=== PATIENT | female | born 1950 | race Caucasian/White ===

== ENCOUNTER → 2017-04-14 | Outpatient (CLI) | payer OTHER ==
[~2017-04-14] VITALS: Ht 154.9 cm; Wt 80.3 kg
[~2017-04-14] MED LIST: ESTRACE0.5 MG PO; NEURONTIN 300300 M1 PO; OXYCODONE HCL10 MG PO; OXYCODONE HCL15 MG PO; OXYMORPHONE HCL10 M1 PO; REMERON15 M2 PO; VISTARIL 25 MG25 M1 PO; ZANAFLEX4 MG PO
--- NOTE | ~2017-04-14 | HPC ---
[facility] [address] [address] PAIN MANAGEMENT CONSULTATION Name: GERARD PARDO Room #: REG [facility] Laney.#: [id number] Admission: 04/14/17 Attend Phys: Tucker Jordan MD Discharge: Date of : 50 Report #: [id number] THIS REPORT FOR: //name// CC: JUDY Ahn DATE OF SERVICE: 04/14/2017 CHIEF COMPLAINT: Back pain. FOLLOWUP HISTORY: The patient is a 66-year-old female who has been referred to the Pain Clinic for evaluation of medications and treatment options. FOLLOWUP HISTORY: The patient is a 66-year-old female who has had a long history of back pain for greater than 10 years. She had surgery in 2003. She has had placement of Henley rods because of chronic back pain. She has been treated with medications. Notes that her pain is worse when she is standing, walking, sitting for a prolonged period of time. Feels that ice and pain medications as well as rest can be helpful. She is having pain in a number of areas. She has pain shooting down in her low back as well as some pain in the neck area. Describes it as constant, shooting, cramping, aching and crushing. She rates it as 3/10 at this juncture. 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 She has been followed at a pain clinic in [place], [place]. Her insurance is changing. She is no longer able to follow up in that pain clinic. She has sought out treatment and pain medication management. She finds that her pain is made worse with bending, changing position, coughing, going up and down stairs and increasing her general activities of daily living. Sneezing can be problematic. Sometimes, she has difficulty sleeping because of the pain symptoms. Prior treatment has included x-rays, CT scans, EMG test, nerve blocks, myelograms, CT myelograms, bone scans, lumbar punctures, EKGs and MRI scans. Some of the professional caregivers the patient has seen have included pain management physicians, family physicians, spine surgeons, neurologist, Orthopedics, anesthesiologist, rehab medicine, neurosurgeons, nurse practitioners and psychiatrist. Treatment in the past have included bed rest, ice, intrathecal infusion pump and psychiatric treatments. ALLERGIES: DYES, LATEX, MORPHINE, VALIUM, PENICILLINS, BARBITURATES. MEDICATIONS: Estrace 0.5 mg daily, tizanidine 4 mg t.i.d., hydroxyzine 25 mg 4 times daily, codeine immediate release 15 mg p.r.n., oxymorphone ER 10 mg b.i.d., gabapentin 300 mg t.i.d. Medications used in the past include antidepressants, nonsteroidal anti-inflammatory medications, Flexeril, hydrocodone, methadone, MS Contin, [address] [address] PAIN MANAGEMENT CONSULTATION Name: GERARD PARDO Room #: REG [facility] Joe#: [id number] Admission: 04/14/17 Attend Phys: Tucker Jordan MD Discharge: Date of : 50 Report #: [id number] Avinza, Caitlin, muscle relaxants, narcotics, Opana, oxycodone, OxyContin, Percocet, Soma and Ultram. PAST MEDICAL HISTORY: Chronic back pain, anemia, tested positive for tuberculosis with serology, liver disease, hepatitis, kidney stones. PAST SURGICAL HISTORY: Carpal tunnel surgery, face surgery, foot surgery, hysterectomy in 1986, back surgery for spondylosis in 1982, back surgery with Henley joy placement in 2003. 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 She has not worked for 13 years. Denies use of tobacco, denies use of alcoholic beverages. REVIEW OF SYSTEMS: Questionnaire 14-point review indicates generally good health, fatigue, weakness, headaches, hearing loss/ringing in the ears, chronic sinus problems, nausea, frequent headaches, lightheadedness, dizziness, numbness and tingling sensation, depression at the of her child, insomnia occasionally, anemia in the past. PAIN CLINIC ASSESSMENT: 1. History of osteoarthritis is yes, history of rheumatoid arthritis is no. 2. Height 5 feet 1 inch, weight 177 pounds, BMI is 35. 3. VITAL SIGNS: Blood pressure 78/51, pulse 94, respiratory rate 14, room air saturation 95%. 4. Pain score 3 today, average is 4-5. 5. Fall risk, dizziness, need for help with standing and with walking is no. Fallen in the last 3 months is yes. The patient complains of falling 4 days ago, just passed out, did not seek medical care. 6. The patient is not on blood thinner. 7. The patient is not being treated for hypertension. 8. Opioids greater than 6 weeks. The patient will continue with her current medication regimen per her doctor and follow up after these medications have been consumed. 9. Risk assessment tool. 10. Recreational drug use none, tobacco none, alcohol use none. PHYSICAL EXAMINATION: GENERAL: The patient is a well-developed white female. She appears stated age. She is alert and oriented x 3. Affect appears appropriate. Speech is fluent. HEENT: Normocephalic, atraumatic. Extraocular eye muscles intact. The patient has some decreased hearing. She has some history of sinusitis, not problematic today. Moist buccal membranes. NECK: Without bruits. No masses noted. CHEST: Clear to auscultation. HEART: Regular rate. ABDOMEN: Without organomegaly. [facility] [address] [place] [address] PAIN MANAGEMENT CONSULTATION Name: GERARD PARDO Room #: REG [facility]#: [id number] Admission: 04/14/17 Attend Phys: Tucker Jordan MD Discharge: Date of : 50 Report #: [id number] UPPER EXTREMITY EVALUATION: Muscle strength is 5/5 in the major muscle groups of the upper extremity. She does complain of some pain in her hands down into the hand with numbness. 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 MUSCULOSKELETAL: The patient has a well-healed scar in the lower portion of her back, some paraspinous muscle soreness below L3, L4, L5 in the paraspinous areas, some discomfort and generalized pain in the thoracic area and in the area of the rods. Complains of pain and discomfort in the lower portion of her back with pain radiating down into her legs along the outside of the cast with numbness and on the lateral side of her feet and involvement of the big toes. Positive straight leg raises. Left and right lateral bending is somewhat limited. Left and right lateral rotation is limited. Forward bending to about 30 degrees caused increased pain in the low back area. Lumbar extension is also limited. The patient has a slightly uneven gait, unable to walk on her heels or her toes. IMPRESSION: 1. Lumbar radiculopathy, history of back surgery with Henley rods in place. 2. Complex medical management. RECOMMENDATIONS: We discussed the treatment options with the patient. We will review her past medical records. She states that she has had no problems with the medications, she has been using them as prescribed. The reason for her change of pain clinic is due to insurance reasons. She states that she gets all of her medications from one source. She has not had problems with the medications. She finds that the medications enable her to engage in activities of daily living, she would not be able to without their use. She keeps her medications in a guarded area. We had a long talk about the current climate of pain control. Opioid medications are in the news forefront. The patient states that over the number of years that she has been taking the medications, she is taking them responsibly. They have been causing no problems. She continues to take them as prescribed and would like to continue their use. She has some medications, which were prescribed by her present doctor. Once these medications have been consumed, she will follow up in the Pain Clinic, at which time we will consider continued evaluation of the patient and treatment for her chronic pain situation. We would like to thank you for letting us to participate in her care. We hope she continues to improve. <ELECTRONICALLY SIGNED> By: Tucker Jordan MD 05/24/17 1424 [id number] [id number] Tucker Jordan MD /nt
[2017-04-14 11:25] VITALS: BP 78/51
== END ==
LOC: PAIN 08:53
DX: M54.16 Radiculopathy, lumbar region (principal); M19.90 Unspecified osteoarthritis, unspecified site; Z98.1 Arthrodesis status

== ENCOUNTER → 2017-05-26 | Outpatient (CLI) | payer OTHER ==
[~2017-05-26] VITALS: Ht 154.9 cm; Wt 80.7 kg
[~2017-05-26] MED LIST changes: +CYMBALTA60 MG PO; +ESZOPICLONE2 MG PO; +LIPITOR 20 MG T20 M1 PO; +SINGULAIR 10 MG10 M1 PO
--- NOTE | ~2017-05-26 | HPC ---
[facility] [address] [address] PAIN MANAGEMENT CONSULTATION Name: GERARD PARDO Room #: REG [facility] Laney.#: [id number] Admission: 05/26/17 Attend Phys: Tucker Jordan MD Discharge: Date of : 50 Report #: [id number] THIS REPORT FOR: //name// CC: JUDY Ahn DATE OF SERVICE: 05/26/2017 CHIEF COMPLAINT: Here for medication renewal. FOLLOWUP HISTORY OF PRESENT ILLNESS: The patient is a 66-year-old female who has been followed in the pain clinic because of lumbar radicular pain and osteoarthritis with rheumatoid arthritis. She has returned for renewal of her medications. She continues to have pain in her neck, which is shooting down into her sacral area bilaterally. She has some numbness in the outside of her calves as well. Has pain, which is throbbing in her back and thoracic area. Rates her pain as a 5/10. Pain is worse when she is standing, walking as well as if she sits for too longer period of time. Pain improves with use of rest, ice, and feels that her current pain medications are helpful. She has had surgery. Last surgery in 2003. She has had placement of Henley rods in her low back because of the chronic pain. 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 She has been treated with a number of modalities in the past, but her pain continues to be problematic. She feels that her current medical regimen of oxymorphone and tizanidine were helpful. She would like to have these medications renewed. She states that she has taken her medication as prescribed. Keeps her medications in a guarded area. ALLERGIES: DYES, LATEX, MORPHINE, VALIUM, PENICILLINS, BARBITURATES. CURRENT MEDICATIONS: Estrace 0.5 mg daily, tizanidine 4 mg p.o. t.i.d., hydroxyzine 25 mg 4 times daily, codeine immediate release 15 mg p.r.n., oxymorphone ER 10 mg b.i.d., and gabapentin 300 mg t.i.d. PAIN CLINIC ASSESSMENT 1. The patient has a history of osteoarthritis, history of rheumatoid arthritis. Has had surgery in the low back area with rods placed in her low back/Henley. 2. Height 5 feet 1 inch, weight 177 pounds, BMI is 33.6. 3. Vital Signs: Blood pressure 113/75, pulse 93, respiratory rate 16, room air saturation is 97%. 4. Pain intensity is 5/10. 5. Fall risk. The patient has not fallen. The patient complains of some problems about 4 days ago. She did not fall. She did not seek medical attention. 6. The patient is [place] [address] PAIN MANAGEMENT CONSULTATION Name: GERARD PARDO Room #: REG [facility]#: [id number] Admission: 05/26/17 Attend Phys: Tucker Jordan MD Discharge: Date of : 50 Report #: [id number] 7. History of hypertension. The patient is not treated for hypertension. 8. Opioid therapy, greater than 6 weeks the patient does not have a contract. 9. Opioid risk tool. 10. Functional assessment tool. 11. Recreational drug use. The patient denies use of recreational drugs. 12. Tobacco: The patient has never smoked. 13. Alcohol. The patient denies frequent use of alcoholic beverages. PHYSICAL EXAMINATION: GENERAL: The patient is a well-developed, well-nourished female. She appears her stated age. She is alert and oriented x 3. Affect is appropriate Speech is fluent. HEENT: Normocephalic, atraumatic. Extraocular eye muscles intact. The patient has some decreased hearing. She has a history of sinusitis and moist mucous membranes. NECK: Without bruits, no masses. CHEST: Clear to auscultation. HEART: Regular rate. ABDOMEN: Without organomegaly. MUSCULOSKELETAL: Complained of soreness in upper extremities. Muscle strength remains 5/5 for the major muscle groups in the upper extremities. Complains of some pain and discomfort in her hands with some numbness. 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 Lower extremities: The patient has some soreness in the area of the L3, L4, L5, paraspinous muscle groups. Muscle strength is judged to be 5/5 for the major muscle groups in the lower extremities. Does have some feeling of pain that is radiating down into the legs. Some discomfort in the area of the cast. Some discomfort in the outside of her feet with numbness. Some ____ inside of her big toes. IMPRESSION: 1. Lumbar radicular pain. History of back surgery with Henley rods in place. 2. Complex medical management with opioid medications. 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 Risks and benefits again of opioid therapy were discussed. Possible complications of their use, which include addiction as well as tolerance have been discussed. The patient feels that her medications are helpful. She would like to continue them. She keeps them in a guarded area. She denies any bowel or bladder dysfunction. She is thinking clearly with no mental fogging. We will provide her with an additional script for tizanidine, oxycodone, and oxymorphone. She will call us if she has any problems with her medications. [facility] [address] [place] [address] PAIN MANAGEMENT CONSULTATION Name: CUTBIRTHGERARD L Room #: [facility].#: [id number] Admission: 05/26/17 Attend Phys: Tucker Jordan MD Discharge: Date of : 50 Report #: [id number] We would like to thank you for letting us participate in her care. We hope she continues to improve. <ELECTRONICALLY SIGNED> By: Tucker Jordan MD 06/14/17 0816 1536 [id number] Tucker Jordan MD /nt
[2017-05-26 11:24] VITALS: BP 113/75
== END ==
LOC: PAIN 05-08 13:41
DX: M54.5 Low back pain (principal); M54.16 Radiculopathy, lumbar region; M06.9 Rheumatoid arthritis, unspecified; I10 Essential (primary) hypertension; F11.90 Opioid use, unspecified, uncomplicated; Z79.899 Other long term (current) drug therapy

== ENCOUNTER → 2017-06-30 | Outpatient (CLI) | payer OTHER ==
[~2017-06-30] VITALS: Ht 154.9 cm; Wt 79.0 kg
[~2017-06-30] MED LIST changes: -CYMBALTA60 MG PO; -ESZOPICLONE2 MG PO; -LIPITOR 20 MG T20 M1 PO; -SINGULAIR 10 MG10 M1 PO
--- NOTE | ~2017-06-30 | HPC ---
[facility] [address] [address] [place] [address] PAIN MANAGEMENT CONSULTATION Name: GERARD PARDO Room #: REG [facility]..#: [id number] Admission: 06/30/17 Attend Phys: Tucker Jordan MD Discharge: Date of : 50 Report #: [id number] THIS REPORT FOR: //name// CC: JUDY Ahn DATE OF SERVICE: 06/30/2017 FOLLOWUP COMPLAINT: Medications working well. Deny of having any problems. "Still having some pain that is down in my upper back, low back and down in the cast." FOLLOWUP HISTORY: The patient is a 66-year-old female, who has been followed in the pain clinic because of chronic pain. She suffers from lumbar radicular pain as well as osteoarthritis and rheumatoid arthritis. She has returned today for renewal of her medication. Finds her medications continue to be helpful. They enable her to stay active. She rates her pain as a 5/10 today. Continues to describe this constant, shooting, cramping, aching, crushing and stabbing with some sharp dimensions to the pain. Pain is exacerbated by standing, walking as well as for sitting too long. Notes improvement with use of rest and pain medications. Finds her medications continue to be helpful. Denies any problems with her medications. She feels like her sensorium is clear. She would like to continue with her current medication. ALLERGIES: DYES, LATEX, MORPHINE, VALIUM, PENICILLINS, BARBITURATES. MEDICATIONS: Esterase 0.5 mg daily, tizanidine 4 mg p.o. t.i.d., hydroxyzine 25 mg 4 times daily, codeine immediate release 15 mg p.r.n., oxymorphone ER 10 mg 1 p.o. b.i.d. and gabapentin 300 mg t.i.d. PAIN CLINIC ASSESSMENT: 1. The patient does have a history of osteoarthritis and history of rheumatoid arthritis. She has had surgery in her low back and has rods placed in this area with pedicle screws/Henley rods. 2. Height 5 feet 1 inch, weight 174 pounds, BMI is 32. 3. VITAL SIGNS: Blood pressure 137/94, pulse of 117, respiratory rate 20, room air saturation 97%. 4. Pain intensity 10. 5. Fall risk. The patient has not fallen in the last month. She feels that things are going reasonably well. 6. Blood thinner. The patient is not on a blood thinner. 7. Hypertension. The patient is not being treated for hypertension. 8. Opioid therapy. The patient has a contract with the pain clinic and has to receive her opioid medications from only one service. 9. Opioid risk tool. [address] [address] PAIN MANAGEMENT CONSULTATION Name: GERARD PRADO [facility] [id number] Admission: 06/30/17 Attend Phys: Tucker Jordan MD Discharge: Date of : 50 Report #: [id number] 10. Functional assessment tool. 11. Recreational drugs. Denies ever using recreational drugs. 12. Tobacco: The patient has never smoked cigarettes. 13. Alcoholic beverages. The patient does not drink alcoholic beverages. PHYSICAL EXAMINATION: GENERAL: The patient is well developed white female. She appears her stated age. She is alert and oriented x 3. Affect is appropriate. Speech is fluent. HEENT: Normocephalic, atraumatic. Extraocular eye muscles intact. Sclerae is nonicteric. Hearing is within normal limits. Mucous membranes are moist. NECK: Without bruits or masses. Good range of motion. CHEST: Clear to auscultation without rhonchi or rales. HEART: Regular rate. ABDOMEN: Nontender, without organomegaly. MUSCULOSKELETAL: The patient has some soreness in the upper extremities of her back, some in the mid portion of her back as well as in the lower portion of her back. Muscle strength to the lower extremities judged to be 5/5 for the major muscle groups. She does have some soreness in the L3-L4, L4-L5 paraspinous muscle groups. She does note some pain radiating down into her legs. Upper muscle strength is judged to be 5/5 for the major muscle groups with muscle symmetry. No sensory changes or complaints. The patient does have a slight bit of tremor in her hands bilaterally. IMPRESSION: 1. Lumbar radiculopathy, history of back surgery with Henley joy placements. 2. Complex medical management of pain with opioid therapy. 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 We will continue with her current medical regimen. She denies any problems with her medications. She feels that her sensorium is clear. She keeps her medication in a guarded area. She feels that these medications were helpful and enable her to be engaged in activities of daily living, she would not be able to without their use. States that she takes her medications as prescribed. She would like to have her medications continued. We will renew the patient's current medications. A script for oxymorphone ER 10 mg 1 p.o. every 12 hours p.r.n., tizanidine 4 mg 1 p.o. t.i.d. and oxycodone 10 mg 1 p.o. t.i.d. have been written. The patient will call us if she has any problems with her medications. We would like to thank you for letting us participate in her care. We hope she continues to improve. <ELECTRONICALLY SIGNED> By: Tucker Jordan MD 07/04/17 0823 1308 [id number] Tucker Jordan MD /nt
[2017-06-30 10:53] VITALS: BP 137/94
== END ==
LOC: PAIN 07:16
DX: M54.16 Radiculopathy, lumbar region (principal); F11.90 Opioid use, unspecified, uncomplicated; Z98.890 Other specified postprocedural states; Z91.040 Latex allergy status; Z91.041 Radiographic dye allergy status; Z88.5 Allergy status to narcotic agent; Z88.8 Allergy status to other drugs, medicaments and biological substances; Z88.0 Allergy status to penicillin

== ENCOUNTER → 2017-08-25 | Outpatient (CLI) | payer OTHER ==
[~2017-08-25] VITALS: Ht 154.9 cm; Wt 85.2 kg
[~2017-08-25] MED LIST changes: +CYMBALTA60 MG PO; +ESZOPICLONE2 MG PO; +LIPITOR 20 MG T20 M1 PO; +SINGULAIR 10 MG10 M1 PO
--- NOTE | ~2017-08-25 | HPC ---
[facility] [address] [address] [place] [address] PAIN MANAGEMENT CONSULTATION Name: GERARD PARDO Room #: REG [facility] M..#: [id number] Admission: 08/25/17 Attend Phys: Tucker Jordan MD Discharge: Date of : 50 Report #: [id number] THIS REPORT FOR: //name// CC: JUDY Ahn Physician staff DATE OF SERVICE: 08/25/2017 FOLLOWUP COMPLAINT: "Medications working well. I do not have any problems." FOLLOWUP HISTORY: The patient is a 66-year-old female who has been seen in the pain clinic because of chronic pain. As you recall, she has pain and discomfort in the lower portion of her back. She suffers from osteoarthritis and rheumatoid arthritis. She feels that her current medications are helpful. She does not have any problems with them. She is taking the medications as prescribed. Continues to have some shooting, cramping, aching, stabbing pain and discomfort. Notes some worsening of pain if she sits for a prolonged amount of time. Continues to stretch. Keeps her medications in a guarded area. She is aware of the possible complications associated with opioid medications. She has been watching the news on the media. She is aware that some patients have had problems with addiction as well as decreased effectiveness because of tolerance. ALLERGIES: DYES, LATEX, MORPHINE, VALIUM, PENICILLIN, BARBITURATES. CURRENT MEDICATIONS: Esterase 0.5 mg daily, tizanidine 4 mg p.o. t.i.d., hydroxyzine 25 mg q.i.d., codeine immediate release 15 mg p.r.n., oxymorphone ER 10 mg 1 p.o. b.i.d., gabapentin 300 mg p.o. t.i.d. PAIN CLINIC ASSESSMENT: 1. The patient has a history of osteoarthritis and rheumatoid arthritis. She has had surgery on her low back with placement of rods and pedicle screws. Henley rods were instituted. 2. Height 5 feet 1 inch, weight 187 pounds, BMI is 35.5. Blood pressure 125/76, pulse 122, respiratory rate 16, room air saturation 98%. 3. Pain intensity 05/20. 4. Fall risk. The patient has not fallen in the last 3 months. 5. Blood thinner. The patient is not on a blood thinning medication. 6. Hypertension. The patient has not been treated for hypertension. 7. Opioid therapy greater than 6 weeks. 8. Risk assessment tool, low. 9. Functional assessment tool 60/70 showing significant impact on her life and activities as a result of the pain. 10. Tobacco: The patient has never smoked. [facility] [address] [place] [address] PAIN MANAGEMENT CONSULTATION Name: GERARD PARDO Room #: REG [facility]#: [id number] Admission: 08/25/17 Attend Phys: Tucker Jordan MD Discharge: Date of : 50 Report #: [id number] 11. Alcohol: The patient denies frequent use of alcoholic beverages. PHYSICAL EXAMINATION: GENERAL: The patient is a well-developed white female, appears her stated age. She is alert and oriented x 3. Her affect is appropriate. Speech is fluent. HEENT: Normocephalic, atraumatic. Extraocular eye muscles intact. Sclerae nonicteric. Hearing is within normal limits. Mucous membranes are moist. NECK: Without adenopathy, bruits with good range of motion. CHEST: Clear to auscultation without rhonchi or rales. HEART: Regular rate. S1, S2. ABDOMEN: Nontender, without organomegaly. MUSCULOSKELETAL: The patient continues to have some soreness in the upper extremities. Has pain and discomfort in the lower portion of her back. Muscle strength is judged to be 5/5 in major muscle groups in the upper extremity. Muscle strength in the lower portion 5/5 with some limitations in movement as well as a well-healed scar in the lower portion of her back. The patient has slight tremor in her hands bilaterally. IMPRESSION: 1. Lumbar radiculopathy with history of Henley joy placement and fusion, lumbar area. 2. Complex medical management using opioid medications. 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 She feels that her medications are working reasonably well. She has had no complications with their use. She is sleeping well. Her mentation is good. Feels that the medications are doing just what they should do. They are providing her with pain relief, but not significantly impacted on activities of daily living. She would like to continue with her medications. She will call us if she has any problems with her medications. We would like to thank you for letting us participate in her care. We hope she continues to improve. By: 1418 1830 Tucker Jordan MD /[facility]
[2017-08-25 11:09] VITALS: BP 125/76
== END ==
LOC: PAIN 06:48
DX: M54.16 Radiculopathy, lumbar region (principal); Z79.891 Long term (current) use of opiate analgesic

== ENCOUNTER → 2017-09-29 | Outpatient (CLI) | payer OTHER ==
[~2017-09-29] VITALS: Ht 157.5 cm; Wt 87.5 kg
[~2017-09-29] MED LIST changes: +VENTOLIN HFA 1818 GM INH
--- NOTE | ~2017-09-29 | HPC ---
[facility] [address] [place] [address] PAIN MANAGEMENT CONSULTATION Name: GERARD PARDO Room #: REG [facility] M..#: [id number] Admission: 09/29/17 Attend Phys: Tucker Jordan MD Discharge: Date of : 50 Report #: [id number] THIS REPORT FOR: //name// CC: JUDY Ahn Physician staff DATE OF SERVICE: 09/29/2017 FOLLOWUP COMPLAINT: Here for medication renewal. FOLLOWUP HISTORY: The patient is a 66-year-old female who has been followed in the Pain Clinic because of chronic pain. She has pain and discomfort in the lower portion of her back. She describes an area in the mid back, which she describes as painful. It is about the size of an orange. She does complain of problems with rheumatoid arthritis as well as osteoarthritis. She feels that the opioid medications are helpful, they enable her to engage in activities she would not be able to without their use. Still has some shooting, cramping, stabbing pain. States that she continues to stretch and be active. She keeps her medications in a guarded area. She is aware of the possible complications with opioids. She continues to monitor opioid discussion in the media. She feels that her medications are helpful. She is aware of the possibility of addiction and notes that its effectiveness may decrease over a period of time secondary to tolerance. She would like to have her medications renewed. She does not have any problems with the medications. ALLERGIES: DYE, LATEX, MORPHINE, VALIUM, PENICILLIN, BARBITURATES. CURRENT MEDICATIONS: Esterase 0.5 mg, tizanidine 4 mg t.i.d., hydroxyzine 25 mg q.i.d., codeine immediate release 15 mg, oxymorphone ER 10 mg 1 p.o. b.i.d., gabapentin 300 mg t.i.d. PAIN CLINIC ASSESSMENT: 1. The patient has a history of osteoarthritis and rheumatoid arthritis. She has had surgery on her low back with placement of rods and pedicle screws. She has Henley rods in place. 2. Height 5 feet 1 inch, weight 193 pounds, BMI is 35. 3. Vital signs: Blood pressure is 143/87, heart rate is 100, respiratory rate 14, room air saturation 94%. 4. Pain intensity: 10. 5. Fall risk: The patient has not fallen in the last 3 months. 6. Blood thinner: The patient is not on a blood thinning medication. 7. History of hypertension: The patient is not being treated for hypertension. 8. Opioid therapy greater than 6 weeks: The patient is on a contract and receives her [place] [address] PAIN MANAGEMENT CONSULTATION Name: GERARD PARDO Room #: REG [facility] Tatyana#: [id number] Admission: 09/29/17 Attend Phys: Tucker Jordan MD Discharge: Date of : 50 Report #: [id number] 9. Risk assessment: 20 to low. 10. Functional assessment tool: 60/70. 11. Recreational drug use: The patient denies use of recreational drugs. 12. Tobacco: The patient has never smoked. 13. Alcohol: The patient denies frequent use of alcoholic beverages. PHYSICAL EXAMINATION: GENERAL: The patient is a well-developed, well-nourished, white female. Appears her stated age. She is alert and oriented x 3. Her affect is appropriate. Speech is fluent. HEENT: Normocephalic, atraumatic. Extraocular eye muscles intact. Sclerae nonicteric. Hearing within normal limits. Mucous membranes are moist. NECK: Without adenopathy or bruits and good range of motion. CHEST: Clear to auscultation without rhonchi or rales. HEART: Regular rate, S1 and S2. ABDOMEN: Nontender without organomegaly. MUSCULOSKELETAL: The patient continues to have some soreness in her upper extremities. Has pain and discomfort in the lower portion of her back about the size of an orange in the midline area in the L5-S1 areas. The patient's muscle strength in the upper extremity is judged to be 5/5, muscle strength in the lower extremity 5/5 as well. The patient has slight tremors in her hands bilaterally. IMPRESSION: 1. Lumbar radiculopathy with history of Henley joy placement and fusion in the lumbar area. 2. Complex medical regimen using opioid medications. 3. History of tuberculosis. 4. Anemia. 5. History of kidney stones. 6. History of hepatitis. 7. Liver disease. 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 Risks and benefits of current use of opioid medications were again reviewed with the patient. 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 She is aware of the complications of opioid use. She feels that the medications are helpful in enabling her to engage in activities of daily living, she would like to continue with it. A script for her medications have been written. The patient was provided a drug test. We will rewrite her prescription for OxyIR 10 mg t.i.d., oxymorphone ER q. 12 hours as well as tizanidine [address] [address] PAIN MANAGEMENT CONSULTATION Name: CUTGERARD NAVARRETE Room #: REG [facility]#: [id number] Admission: 09/29/17 Attend Phys: Tucker Jordan MD Discharge: Date of : 50 Report #: [id number] We would like to thank you for letting us participate in her care. We hope she continues to improve. By: 1630 0600 Tucker Jordan MD /nt
[2017-09-29 10:48] VITALS: BP 143/87
== END ==
LOC: PAIN 06:50
DX: M54.16 Radiculopathy, lumbar region (principal); K76.9 Liver disease, unspecified; D64.9 Anemia, unspecified; Z79.891 Long term (current) use of opiate analgesic

== ENCOUNTER → 2017-10-25 | Outpatient (CLI) | payer OTHER ==
[~2017-10-25] VITALS: Ht 154.9 cm; Wt 83.9 kg
[~2017-10-25] MED LIST changes: +PAROXETINE HCL30 MG PO
[2017-10-25 10:44] VITALS: BP 123/75
== END ==
LOC: PAIN 07:01
DX: M54.2 Cervicalgia (principal); M53.3 Sacrococcygeal disorders, not elsewhere classified; Z79.899 Other long term (current) drug therapy

== ENCOUNTER → 2017-12-22 | Outpatient (CLI) | payer OTHER ==
[~2017-12-22] VITALS: Ht 154.9 cm; Wt 80.5 kg
[~2017-12-22] MED LIST changes: +ESZOPICLONE3 MG PO; +PAROXETINE HCL40 MG PO; +TRAZODONE HCL50 MG PO
--- NOTE | ~2017-12-22 | HPC ---
[facility] [address] [place] [address] PAIN MANAGEMENT CONSULTATION Name: GERARD PARDO Room #: REG [facility].#: [id number] Admission: 12/22/17 Attend Phys: Tucker Jordan MD Discharge: Date of : 50 Report #: [id number] THIS REPORT FOR: //name// CC: JUDY Jordan Physician staff DATE OF SERVICE: 12/22/2017 FOLLOWUP COMPLAINT: Here for medications. Things are going pretty well. HISTORY: The patient is a 67-year-old female who has been followed in the pain clinic. She suffers from chronic pain. As you recall, she has had back surgeries on 2 occasions. Continues to have some pain and discomfort. Has rods and instrumentation in the lower back. Her pain continues to be somewhat problematic. Finds that it is helped with use of her current medications. Rates her pain as a 2/10. Does not have any problems with her bowel or bladder function. She is not having any problems with mentation. Feels that these medications have been beneficial. The patient has not developed tolerance. Feels that the medication at this level continue to be efficacious. She keeps her medications in a guarded area. She would like to have the medications renewed. ALLERGIES: DYES. LATEX, MORPHINE, VALIUM, PENICILLIN AND BARBITURATES. MEDICATIONS: Esterase 0.25 mg, tizanidine 4 mg t.i.d., hydroxyzine 25 mg q.i.d., oxycodone immediate release 15 mg, oxymorphone ER 10 mg 1 p.o. b.i.d., gabapentin 300 mg p.o. t.i.d. PAIN CLINIC ASSESSMENT/PQRS: 1. History of osteoarthritis. The patient has some arthritic changes in her upper back. She has not being treated for rheumatoid arthritis. 2. Height 5 feet 1 inch, weight 177 pounds, BMI is 33.5. 3. Vital signs: Blood pressure 132/80, pulse 92, respiratory rate 16, room air saturation 98%. 4. Pain intensity 04/22. 5. Fall risk. The patient has not fallen in the last 3 months. 6. Blood thinner. The patient is not on a blood thinning medication. 7. Hypertension. The patient has not been treated for hypertension. 8. Opioid therapy. The patient gets her medication from one source, the pain clinic. 9. Risk assessment tool 0, low for use of opioids. 10. Functional assessment tool 60/70. 11. Recreational drug use: The patient denies. 12. Tobacco: The patient denies ever using tobacco. 13. Alcohol: The patient denies use of alcoholic beverages. [address] [address] PAIN MANAGEMENT CONSULTATION Name: GERARD PARDO Room #: REG [facility]#: [id number] Admission: 12/22/17 Attend Phys: Tucker Jordan MD Discharge: Date of : 50 Report #: [id number] PHYSICAL EXAMINATION: GENERAL: The patient is a well-developed, well-nourished white female. Appears her stated age. She is alert and oriented x 3. Her affect is appropriate. Speech is fluent. HEENT: Normocephalic, atraumatic. Extraocular eye muscles intact. Sclerae nonicteric. Mucous membranes are moist. NECK: Without adenopathy or JVD. CHEST: Clear to auscultation without rhonchi or rales. HEART: Regular rate. S1, S2. ABDOMEN: Nontender, without organomegaly. MUSCULOSKELETAL: Without significant kyphosis, lordosis, or scoliosis. The patient has some soreness in her upper extremities. Also, complains of some pain in her lower portion of her back and discomfort in the L5-S1 area. The patient's muscle strength judged to be 5/5 in the major muscle groups in the upper extremity. No sensory changes are noted. Lower extremity muscle strength 5/5. The patient has some slight tremor in her hands bilaterally. IMPRESSION: 1. Lumbar radiculopathy with history of Henley rods and fusion of lumbar spine. 2. Complex medical regimen treated with use of opioid medication. 3. History of tuberculosis. 4. Anemia. 5. History of renal stones. 6. History of hepatitis. 7. History of liver disease. 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 Risks and benefits of opioid medications were again reviewed. The patient is aware that opioid medications can be problematic. A 72,000 people last year as a result of overdoses. The patient is aware. She states she keeps her medications in a guarded area. Feels that the medications are beneficial and enable her to engage in activities of daily living, she would not be able to without their use. She not having any problems or side effects. Thinking clearly. Keeps her medications in a guarded area. We will renew her medications. A script for OxyIR 10 mg 1 p.o. t.i.d., tizanidine 4 mg t.i.d., oxymorphone 10 ER have been renewed. The patient will call us if she has any problems. We would like to thank you for letting us participate in her care. We hope she continues to improve. <ELECTRONICALLY SIGNED> By: Tucker Jordan MD 12/25/17 1125 [id number] 0225 Tucker Jordan MD /rosa
[2017-12-22 13:22] VITALS: BP 132/80
== END ==
LOC: PAIN 07:07
DX: M54.16 Radiculopathy, lumbar region (principal); M43.26 Fusion of spine, lumbar region; D64.9 Anemia, unspecified; G89.29 Other chronic pain; Z79.899 Other long term (current) drug therapy; Z79.891 Long term (current) use of opiate analgesic; Z86.19 Personal history of other infectious and parasitic diseases; Z87.442 Personal history of urinary calculi; Z86.11 Personal history of tuberculosis

== ENCOUNTER → 2018-01-24 | Outpatient (CLI) | payer OTHER ==
[~2018-01-24] VITALS: Ht 154.9 cm; Wt 82.1 kg
[2018-01-24 10:48] VITALS: BP 107/69
== END ==
LOC: PAIN 07:23
DX: M54.2 Cervicalgia (principal); M54.5 Low back pain; M25.551 Pain in right hip; M53.3 Sacrococcygeal disorders, not elsewhere classified; Z79.899 Other long term (current) drug therapy; Z79.891 Long term (current) use of opiate analgesic

== ENCOUNTER → 2018-02-21 | Outpatient (CLI) | payer OTHER ==
[~2018-02-21] VITALS: Ht 154.9 cm; Wt 80.6 kg
[2018-02-21 12:51] VITALS: BP 133/91
== END ==
LOC: PAIN 11:10
DX: M54.2 Cervicalgia (principal); M54.89 Other dorsalgia; M25.551 Pain in right hip; Z79.899 Other long term (current) drug therapy

== ENCOUNTER → 2018-03-21 | Outpatient (CLI) | payer OTHER ==
[~2018-03-21] VITALS: Ht 154.9 cm; Wt 77.3 kg
--- NOTE | ~2018-03-21 | HPC ---
[facility] [address] [address] PAIN MANAGEMENT CONSULTATION Name: GERARD PARDO Room #: REG [facility].#: [id number] Admission: 03/21/18 Attend Phys: Tucker Jordan MD Discharge: Date of : 50 Report #: [id number] THIS REPORT FOR: //name// CC: JUDY Dupont. Pako Jordan DATE OF SERVICE: 03/21/2018 PRIMARY CARE PHYSICIAN: Judy Min DO CHIEF COMPLAINT: Here for medication renewal, things are going reasonably well. 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 She has had surgery on two occasions, the low back area. Finds that her pain continues to be problematic. She does have rods and instrumentation in the low back area. Feels that her current use of oxycodone as well as muscle relaxants like tizanidine have been helpful. She would like to have her medications renewed today. She is not having any problems. Overall, things have gone relatively well. Notes that her pain is worse when she is standing, walking, sitting for too long. Feels that her medications as well as lying down and use of cold in the area can be beneficial. She is taking her medications as prescribed. ALLERGIES: DYES, LATEX, MORPHINE, VALIUM, PENICILLIN, BARBITURATES. CURRENT MEDICATIONS: Estrace 0.25 mg, tizanidine 4 mg t.i.d., hydroxyzine 25 mg q.i.d., oxycodone immediate release 15 mg, omeprazole ER 10 mg b.i.d., gabapentin 300 mg t.i.d. PAIN CLINIC ASSESSMENT/PQRS: 1. History of osteoarthritis. The patient is being treated for osteoarthritis. Has some arthritic changes in her low back area. 2. History of rheumatoid arthritis. The patient is not being treated for rheumatoid arthritis. 3. Height 5 feet 1 inch, weight 170 pounds, BMI is 32.2. 4. Vital signs: Blood pressure 111/73, pulse 80, respiratory rate 14, room air saturation 96%. 5. Pain intensity 06/20. 6. Fall risk. The patient has not fallen in the last 3 months. 7. Blood thinner. The patient is not on a blood thinning medication. 8. History of hypertension. The patient is not being treated for hypertension. 9. Opioids greater than 6 weeks. The patient receives her medication from one source, the pain clinic. 10. Risk assessment tool 0/low for opioid use. 11. Functional assessment tool 60/70. [address] [address] PAIN MANAGEMENT CONSULTATION Name: GERARD PARDO Room #: REG [facility]#: [id number] Admission: 03/21/18 Attend Phys: Tucker Jordan MD Discharge: Date of : 50 Report #: [id number] 12. Recreational drug use. The patient denies use of recreational drugs. 13. Tobacco: The patient has never smoked. 14. Alcohol: The patient denies use of alcoholic beverages. PHYSICAL EXAMINATION: GENERAL: The patient is a well-developed, well-nourished white female. Appears her stated age. She is alert and oriented x 3. Her affect is appropriate. Speech is fluent. HEENT: Normocephalic, atraumatic. Extraocular eye muscles intact. Sclerae nonicteric. Mucous membranes are moist. NECK: Without adenopathy or JVD. LUNGS: Clear to auscultation without rhonchi or rales. ABDOMEN: Nontender, without organomegaly. Bowel sounds present. MUSCULOSKELETAL: Without significant scoliosis, kyphosis or lordosis. Upper extremity muscle strength is judged to be 5-/5. The patient has pain and discomfort in the low portion of her back with pain that radiates down the L5-S1 dermatomal distribution. Has slight tremors in her hands bilaterally. Complains of some low back pain in the sacral area and notes that there is some stiffness in her back. IMPRESSION: 1. Lumbar radiculopathy with history of Henley rods and fusion of the lumbar spine. 2. Complex medical regimen treated with opioid medication. 3. History of tuberculosis. 4. Anemia. 5. History of renal stones. 6. History of hepatitis. 7. History of liver disease. 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 Risks and benefits of her current medications were discussed. The patient feels that the medications are helpful. Not having any problems with them at this juncture. She is aware that opioid medications can be problematic. She is aware that use of opioid medications long-term can be less effective secondary to development of tolerance. She would like to have her medications renewed. A script for her medications of OxyIR 10 mg 1 p.o. t.i.d. as well as oxymorphone 10 mg 1 p.o. q.12 hours have been written. The patient will also continue with tizanidine 4 mg t.i.d. [address] [address] PAIN MANAGEMENT CONSULTATION Name: GERARD PARDO Room #: REG [facility]#: [id number] Admission: 03/21/18 Attend Phys: Tucker Jordan MD Discharge: Date of : 50 Report #: [id number] We would like to thank you for letting us participate in her care. Hope she continues to improve. By: 1750 0057 Tucker Jordan MD /MELINDA
[2018-03-21 10:50] VITALS: BP 111/73
--- NOTE | 2018-03-21 10:57 | NUR ---
Pain Clinic Assessment: 1. History of Osteoarthritis: YES History of Rheumatoid Arthritis: NONE 2. Height: 5 ft. 1 in. 154.9 cm. Weight: 170.4 lb. oz. 77.293 kg. Patient's BMI: 32.2 3. Vital Signs: BP: 111/73 Pulse: 80 Resp: 14 Temp: 02 Sat: 96 ECG Mon: 4. Pain Intensity: 4 5. Fall Risk: Dizziness: N Needs help standing or walking: N Fallen in the last 3 months: N Fall risk comments: 6. Patient on Blood Thinner: None 7. History of Hypertension: N 8. Opioid Therapy greater than 6 weeks: Y Opiate Contract Signed: 04/14/17 9. Risk Assessment Tool Provided: ISAIAS 10. Functional Assessment Tool: 11. Recreational Drug Use: Never Drug Type: Tobacco Use: Never Smoker Tobacco Type: Amount or Packs/day: How Many Years: Alcohol Use: No Frequency: Quant:
== END ==
LOC: PAIN 07:02
DX: M54.16 Radiculopathy, lumbar region (principal); M43.26 Fusion of spine, lumbar region; D64.9 Anemia, unspecified; Z79.899 Other long term (current) drug therapy; Z86.19 Personal history of other infectious and parasitic diseases; Z87.442 Personal history of urinary calculi; Z87.19 Personal history of other diseases of the digestive system; Z86.11 Personal history of tuberculosis

== ENCOUNTER → 2018-04-20 | Outpatient (CLI) | payer OTHER ==
[~2018-04-20] VITALS: Ht 154.9 cm; Wt 76.6 kg
[2018-04-20 10:46] VITALS: BP 135/72
--- NOTE | 2018-04-20 10:50 | NUR ---
Pain Clinic Assessment: 1. History of Osteoarthritis: YES History of Rheumatoid Arthritis: NONE 2. Height: 5 ft. 1 in. 154.9 cm. Weight: 168.8 lb. oz. 76.567 kg. Patient's BMI: 31.9 3. Vital Signs: BP: 135/72 Pulse: 104 Resp: 18 Temp: 02 Sat: 94 ECG Mon: 4. Pain Intensity: 4 5. Fall Risk: Dizziness: N Needs help standing or walking: N Fallen in the last 3 months: N Fall risk comments: 6. Patient on Blood Thinner: None 7. History of Hypertension: N 8. Opioid Therapy greater than 6 weeks: Y Opiate Contract Signed: 04/14/17 9. Risk Assessment Tool Provided: ISAIAS 10. Functional Assessment Tool: 11. Recreational Drug Use: Never Drug Type: Tobacco Use: Never Smoker Tobacco Type: Amount or Packs/day: How Many Years: Alcohol Use: No Frequency: Quant:
--- NOTE | 2018-04-20 16:49 | HPC ---
[facility] [address] [place] [address] PAIN MANAGEMENT CONSULTATION Name: GERARD PARDO Room #: REG [facility].#: [id number] Admission: 04/20/18 Attend Phys: Tucker Jordan MD Discharge: Date of : 50 Report #: [id number] THIS REPORT FOR: //name// CC: JUDY Dupont. Pako Jordan DATE OF SERVICE: 04/20/2018 CHIEF COMPLAINT: Here for medication renewal, things are going well. 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 She has had surgery on 2 occasions in her low back. Finds that these pains continue to be problematic, they are improved with use of her current opioid medication. Has had rods and instrumentation placed in her lower back because of the problems. She feels that oxycodone and tizanidine are helpful. She does not have any problems with her bowel or bladder function. Notes that the pain can be worse if she has too much activity. Walking, standing, prolonged sitting can exacerbate her discomfort. ALLERGIES: DYES, LATEX, MORPHINE, VALIUM, PENICILLIN, BARBITURATES. CURRENT MEDICATIONS: Estrace 0.25 mg, tizanidine 4 mg t.i.d., hydrochlorothiazide 25 mg, oxycodone immediate release 15 mg, omeprazole ER 15 mg b.i.d., Gabapentin 300 mg t.i.d. PAIN CLINIC ASSESSMENT/PQRS: 1. The patient does have some osteoarthritic changes in her low back. She is not being treated for rheumatoid arthritis. 2. Height 5 feet 1 inch, weight 168 pounds, BMI is 31.9. 3. Vital signs: Blood pressure 135/72, pulse 104, respiratory rate 18, room air saturation 94%. 4. Pain intensity: 4/10. 5. Fall history: The patient has not fallen in the last 3 months. 6. Blood thinner. The patient is not on a blood thinning medication. 7. Hypertension. The patient is not being treated for hypertension. 8. Opioids greater than 6 weeks. 9. Risk assessment tool, low for opioid use. 10. Functional assessment tool, 60/70. 11. Recreational drug use. The patient denies use of recreational drugs. 12. Tobacco: The patient denies use of tobacco. 13. Alcohol: The patient denies use of alcoholic beverages. PHYSICAL EXAMINATION: GENERAL: The patient is a well-developed, well-nourished white female. Appears her stated age. She is alert and oriented x 3. Her affect is appropriate. [address] [address] PAIN MANAGEMENT CONSULTATION Name: GERARD PARDO Room #: REG [facility]#: [id number] Admission: 04/20/18 Attend Phys: Tucker Jordan MD Discharge: Date of : 50 Report #: [id number] Speech is fluent. HEENT: Normocephalic and atraumatic. Extraocular eye muscles intact. Sclerae nonicteric. Mucous membranes are moist. NECK: Without adenopathy or JVD. LUNGS: Clear to auscultation without rhonchi or rales. ABDOMEN: Nontender. Bowel sounds present. MUSCULOSKELETAL: Without significant scoliosis, kyphosis or lordosis. Upper extremity muscle strength is judged to be 5-/5 for the major muscle groups in the upper extremity. The patient has some discomfort in the lower portion of her back and has pain that radiates down the L5-S1 dermatomal distribution. Has some tremors in her hands bilaterally. Complains of some low back and pain in the sacral area. IMPRESSION: 1. Lumbar radiculopathy with history of Henley rods and fusion of lumbar spine. Complex medical regimen treated with opioid medication. 2. History of tuberculosis. 3. Anemia. 4. History of renal stones. 5. History of hepatitis. 6. History of liver disease. 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 We will continue with her current medications. She feels that the medications are working reasonably well. She feels that the oxymorphone 10 mg b.i.d. and OxyIR immediate release 10 mg 3 times daily are beneficial. Tizanidine is helpful with muscle spasms. A script for these medications have been rewritten. She will call us if she has any concerns. We would like to thank you for letting us participate in her care. We hope she continues to improve. <ELECTRONICALLY SIGNED> By: Tucker Jordan MD 04/20/18 1649 [id number] Tucker Jordan MD /rosa
== END ==
LOC: PAIN 07:14
DX: M54.16 Radiculopathy, lumbar region (principal); D64.9 Anemia, unspecified; G89.29 Other chronic pain; Z79.891 Long term (current) use of opiate analgesic; Z79.899 Other long term (current) drug therapy; Z86.11 Personal history of tuberculosis; Z87.442 Personal history of urinary calculi; Z86.19 Personal history of other infectious and parasitic diseases; Z87.19 Personal history of other diseases of the digestive system

== ENCOUNTER → 2018-05-16 | Outpatient (CLI) | payer OTHER ==
[~2018-05-16] VITALS: Ht 154.9 cm; Wt 76.9 kg
--- NOTE | ~2018-05-16 | HPC ---
[facility] [address] [address] PAIN MANAGEMENT CONSULTATION Name: GERARD PARDO [id number] Admission: 05/16/18 ������������������ Attend Phys: Tucker Jordan MD Discharge: ������������������ Date of : 50 Report #: [id number] THIS REPORT FOR: //name// CC: JUDY Dupont. Pako Jordan DATE OF SERVICE: 05/16/2018 CHIEF COMPLAINT: Here for medication renewal. 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 As you recall, she has had surgery on 2 occasions in her low back area. 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 She has rods and instrumentation in her lower back. She has returned today for renewal of her medications. She feels that the tizanidine 4 mg t.i.d. as well as OxyIR 10 mg three times a day are helpful. She also feels that oxycodone 15 mg immediate release has been beneficial. She has returned for renewal of her medications. ALLERGIES: DYES, LATEX, MORPHINE, VALIUM, PENICILLIN, BARBITURATES. CURRENT MEDICATIONS: Estrace 0.25 mg, tizanidine 4 mg t.i.d., hydrochlorothiazide 25 mg, oxycodone immediate release 15 mg, omeprazole ER 15 mg b.i.d., gabapentin 300 mg t.i.d. PAIN CLINIC ASSESSMENT/PQRS: 1. The patient does have some arthritic changes in the lower portion of her back. She is not being treated for rheumatoid arthritis. 2. Height 5 feet 1 inch, weight 169 pounds, BMI is 32.1. 3. Vital signs: Blood pressure 111/63, pulse 73, respiratory rate 14, room air saturation 97%. 4. Pain intensity: 2-3/10. 5. Fall risk: The patient has not fallen in the last 3 months. 6. Blood thinner: The patient is not on a blood thinning medication. 7. Hypertension: The patient is not being treated for hypertension. 8. Opioids greater than 6 weeks: The patient receives her medication from one source, Pain Clinic. 9. Risk assessment tool: Opioids zero, low for use. 10. Functional assessment tool: 60/70. 11. Recreational drug use: The patient denies use of recreational drugs. 12. Tobacco: The patient denies use of tobacco. 13. Alcohol: The patient denies use of alcoholic beverages. PHYSICAL EXAMINATION: GENERAL: The patient is a well-developed, well-nourished [place] [address] PAIN MANAGEMENT CONSULTATION Name: GERARD PARDO Room #: REG [facility]#: [id number] Admission: 05/16/18 ������������������ Attend Phys: Tucker Jordan MD Discharge: ������������������ Date of : 50 Report #: [id number] appears her stated age. She is alert and oriented x 3. Her affect is appropriate. Speech is fluent. HEENT: Normocephalic, atraumatic. Extraocular eye muscles are intact. Sclerae are nonicteric. Mucous membranes are moist. NECK: Without adenopathy or JVD. MUSCULOSKELETAL: Lower extremity muscle strength is judged to be 5-/5 for the major muscle groups in the lower extremities. The patient has some discomfort in the lower portion of her back with pain that continues to radiate down the L5-S1 dermatomal distribution. She has some tremors in her hands bilaterally. She complains of some low back pain in the sacral area. IMPRESSION: 1. Lumbar radiculopathy with history of Henley rods and fusion of the lumbar spine. 2. Complex medical management and treatment using opioid medication. 3. History of tuberculosis. 4. Anemia. 5. History of renal stones. 6. History of hepatitis. 7. History of liver disease. 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 We will continue with her current medications. The patient is aware of the possible complication of use of opioid medications given her nursing position. She is aware of the possibility of addiction as well as less effectiveness secondary to development of tolerance. The patient keeps her medications in a guarded area. A script for her medications has been re-written. She will continue with tizanidine 4 mg one p.o. t.i.d., OxyIR 10 mg one p.o. t.i.d., and that ____ 15 mg one p.o. b.i.d. ��������������������������������������������� ���������������������������������������� By: ��������������������������������������������� [id number] Tucker Jordan MD /rosa
[2018-05-16 11:41] VITALS: BP 111/63
--- NOTE | 2018-05-16 11:49 | NUR ---
Pain Clinic Assessment: 1. History of Osteoarthritis: YES History of Rheumatoid Arthritis: NONE 2. Height: 5 ft. 1 in. 154.9 cm. Weight: 169.6 lb. oz. 76.930 kg. Patient's BMI: 32.1 3. Vital Signs: BP: 111/63 Pulse: 73 Resp: 14 Temp: 02 Sat: 97 ECG Mon: 4. Pain Intensity: 2-3 5. Fall Risk: Dizziness: N Needs help standing or walking: N Fallen in the last 3 months: N Fall risk comments: 6. Patient on Blood Thinner: None 7. History of Hypertension: N 8. Opioid Therapy greater than 6 weeks: Y Opiate Contract Signed: 04/14/17 9. Risk Assessment Tool Provided: ISAIAS 10. Functional Assessment Tool: 11. Recreational Drug Use: Never Drug Type: Tobacco Use: Never Smoker Tobacco Type: Amount or Packs/day: How Many Years: Alcohol Use: No Frequency: Quant:
== END ==
LOC: PAIN 07:04
DX: M54.16 Radiculopathy, lumbar region (principal); G89.29 Other chronic pain; D64.9 Anemia, unspecified; Z88.5 Allergy status to narcotic agent; Z88.8 Allergy status to other drugs, medicaments and biological substances; Z88.0 Allergy status to penicillin; Z91.040 Latex allergy status; Z79.899 Other long term (current) drug therapy; Z87.442 Personal history of urinary calculi; Z86.11 Personal history of tuberculosis; Z86.19 Personal history of other infectious and parasitic diseases

== ENCOUNTER → 2018-06-29 | Outpatient (CLI) | payer OTHER ==
[~2018-06-29] VITALS: Ht 154.9 cm; Wt 77.1 kg
[2018-06-29 12:26] VITALS: BP 107/69
--- NOTE | 2018-06-29 12:32 | NUR ---
Pain Clinic Assessment: 1. History of Osteoarthritis: YES History of Rheumatoid Arthritis: NONE 2. Height: 5 ft. 1 in. 154.9 cm. Weight: 170.0 lb. oz. 77.112 kg. Patient's BMI: 32.1 3. Vital Signs: BP: 107/69 Pulse: 73 Resp: 14 Temp: 02 Sat: 98 ECG Mon: 4. Pain Intensity: 3 5. Fall Risk: Dizziness: N Needs help standing or walking: N Fallen in the last 3 months: N Fall risk comments: 6. Patient on Blood Thinner: None 7. History of Hypertension: N 8. Opioid Therapy greater than 6 weeks: Y Opiate Contract Signed: 04/14/17 9. Risk Assessment Tool Provided: ISAIAS 10. Functional Assessment Tool: 11. Recreational Drug Use: Never Drug Type: Tobacco Use: Never Smoker Tobacco Type: Amount or Packs/day: How Many Years: Alcohol Use: No Frequency: Quant:
--- NOTE | 2018-07-06 00:33 | HPC ---
[facility] [address] [place] [address] PAIN MANAGEMENT CONSULTATION Name: GERARD PARDO Room #: REG [facility]..#: [id number] Admission: 06/29/18 ������������������ Attend Phys: Tucker Jordan MD Discharge: ������������������ Date of : 50 Report #: [id number] THIS REPORT FOR: //name// CC: JUDY Min DO Kamas. Pako Jordan DATE OF SERVICE: 06/29/2018 CHIEF COMPLAINT: Here for medication renewal, things are going pretty well. HISTORY: The patient is a 67-year-old female who has been followed in the pain clinic. She has had back surgeries on 2 occasions. Continues to have some lumbar radicular pain. She has failed back syndrome. Finds that her medications are helpful. Does have rods and instrumentation in the lower back area. She returns today for renewal of her medications. Overall, she feels that things are going reasonably well. Has pain in the mid back area. Has been experiencing sciatica down into both legs. She has had no complication from the medications. Feels that is working reasonably well and would like to continue. ALLERGIES: DYES, LATEX, MORPHINE, VALIUM, PENICILLIN, AND BARBITURATES. CURRENT MEDICATIONS: Estrace 0.25 mg, tizanidine 4 mg t.i.d., hydrochlorothiazide 25 mg, oxycodone immediate release 15 mg, omeprazole ER 15 mg b.i.d., Gabapentin 300 mg t.i.d. PAIN CLINIC ASSESSMENT/PQRS: 1. The patient does have arthritic changes in the lower portion of her back. She is not being treated for rheumatoid arthritis. 2. Height 5 feet 1 inch, weight is 170 pounds, BMI is 32.1. 3. Vital signs: Blood pressure 107/69, pulse 73, respiratory rate 14, room air saturation 98%. 4. Pain intensity 05/20. 5. Fall history. The patient has not fallen in the last 3 months. 6. Blood thinner. The patient is not on a blood thinning medication. 7. Hypertension. The patient is not being treated for hypertension. 8. Opioid greater than 6 weeks. The patient receives her medications from 1 source, the pain clinic. 9. Risk assessment tool for opioid use. 10. Functional assessment tool . 11. Recreational drug use: The patient denies. 12. Tobacco: The patient has never smoked. 13. Alcohol: The patient denies use of alcoholic beverages. PHYSICAL EXAMINATION: [facility] [address] [place] [address] PAIN MANAGEMENT CONSULTATION Name: EGRARD PARDO Room #: REG [facility]#: [id number] Admission: 06/29/18 ������������������ Attend Phys: Tucker Jordan MD Discharge: ������������������ Date of : 50 Report #: [id number] GENERAL: The patient is a well-developed, well-nourished, white female, appears her stated age. She is alert and oriented x 3. Affect is appropriate. Speech is fluent. HEENT: Normocephalic, atraumatic. Extraocular eye muscles intact. The patient's is present. MUSCULOSKELETAL: Without significant scoliosis, kyphosis, or lordosis. EXTREMITIES: Upper extremity muscle strength is judged to be 5-/5 for the upper extremity and 5-/5 for the lower extremity. The patient continues to have some pain and discomfort in the L5-S1 dermatomal distribution. Has some tremors in her hands bilaterally. Complains of some low back pain in the sacral area. IMPRESSION: 1. Lumbar radiculopathy with history of Henley rods and fusion of the lumbar spine. 2. Complex medical regimen using opioid medication. 3. History of tuberculosis. 4. Anemia. 5. Renal stones. 6. Hepatitis. 7. 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 The use of opioid medications were discussed. 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 She is aware that opioid medications can be addictive as well as can become less effective over a period of time secondary to development of tolerance. She feels her medications are working well. States she has taken the medication as prescribed. She has had no complication from their use. Keeps them in a guarded area. Therefore, we will proceed with an issuance of a script for tizanidine 4 mg 1 p.o. t.i.d., OxyIR 10 mg 1 p.o. t.i.d., and oxymorphone 10 mg 1 p.o. q.12 hours. We would like to thank you for letting us participate in her care. We hope she continues to improve. ��������������������������������������������� <ELECTRONICALLY SIGNED> ���������������������������������������� By: Tucker Jordan MD ��������������������������������������������� 07/06/18 0033 [id number] Tucker Jordan MD /[facility]
== END ==
LOC: PAIN 06:55
DX: I10 Essential (primary) hypertension (principal); M54.16 Radiculopathy, lumbar region; D64.9 Anemia, unspecified; N20.0 Calculus of kidney; K75.9 Inflammatory liver disease, unspecified; Z86.11 Personal history of tuberculosis; Z88.8 Allergy status to other drugs, medicaments and biological substances; Z88.0 Allergy status to penicillin; Z87.19 Personal history of other diseases of the digestive system; Z98.1 Arthrodesis status

== ENCOUNTER → 2018-07-25 | Outpatient (CLI) | payer OTHER ==
[~2018-07-25] VITALS: Ht 154.9 cm; Wt 76.2 kg
[~2018-07-25] MED LIST changes: +WELLBUTRIN SR150 MG PO
--- NOTE | ~2018-07-25 | HPC ---
[facility] [address] [address] PAIN MANAGEMENT CONSULTATION Name: GERARD PARDO Room #: REG [facility]..#: [id number] Admission: 07/25/18 ������������������ Attend Phys: Tucker Jordan MD Discharge: ������������������ Date of : 50 Report #: [id number] THIS REPORT FOR: //name// CC: JUDY Dupont. Pako Jordan DATE OF SERVICE: 07/25/2018 CHIEF COMPLAINT: Here for medications. Things are going okay." HISTORY: The patient is a 67-year-old female who has been followed in the pain clinic. 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 Suffers from failed back syndrome. She has undergone surgeries on 2 occasions. Continues to have pain, which is problematic. She has had instrumentation as well as rods placed in the low back area. She has returned today for renewal of her medications. She finds that the medication is helpful. She is having no complication from it. We would like to continue the medication. She is able to engage in activities of daily living, she would not be able to without it. Feels that it enables her to have a more rewarding life. ALLERGIES: DYES, LATEX, MORPHINE, VALIUM, PENICILLIN, and BARBITURATES. CURRENT MEDICATIONS: Estrace 0.25 mg, tizanidine 4 mg t.i.d., hydrochlorothiazide 25 mg, oxycodone immediate release 15 mg, omeprazole ER 15 mg b.i.d., gabapentin 300 mg t.i.d. PAIN CLINIC ASSESSMENT ASSESSMENT/PQRS: 1. The patient has some arthritic changes in the lower portion of her back. She has had back surgeries. She is not being treated for rheumatoid arthritis. 2. Height 5 feet 1 inch, weight 168 pounds, BMI 31.8. 3. Vital signs: Blood pressure is 123/84, pulse 82, respiratory rate 16, room air saturation 96%. Pain intensity 4/10. 4. Fall risk. The patient has not fallen in the last 3 months. 5. Blood thinner. The patient is not being treated with blood thinners. 6. Hypertension. The patient is being treated for hypertension. 7. Opioids greater than 6 weeks. The patient has received medications from the pain clinic since 04/2017. 8. Risk assessment tool, low for opioid use. 9. Functional assessment tool 60/70. 10. Recreational drug use. The patient denies use of recreational drugs. 11. Tobacco: The patient has never smoked. 12. Alcohol: The patient denies frequent use of alcoholic beverages. PHYSICAL EXAMINATION: GENERAL: The patient is a well-developed, well-nourished white female. Appears [facility] [address] [place] [address] PAIN MANAGEMENT CONSULTATION Name: GERARD PARDO Room #: REG [facility]#: [id number] Admission: 07/25/18 ������������������ Attend Phys: Tucker Jordan MD Discharge: ������������������ Date of : 50 Report #: [id number] her stated age. She is alert and oriented x 3. Her affect is appropriate. Speech is fluent. HEENT: Normocephalic, atraumatic. Extraocular eye muscles intact. Sclerae nonicteric. The patient's is present. HEART: Regular rate. LUNGS: Clear to auscultation. MUSCULOSKELETAL: Without significant scoliosis, kyphosis or lordosis. Upper extremity muscle strength judged to be 5-/5 for the major muscle groups in the upper extremity. The patient continues to have some pain and discomfort in the L5-S1 dermatomal distribution. Has some tremors in her hands bilaterally. She complains of back pain in the sacral area. IMPRESSION: 1. Lumbar radiculopathy with history of Henley rods and fusion of the lumbar spine. 2. Complex medical regimen using opioid medication to help control pain. 3. History of tuberculosis. 4. Anemia. 5. Renal stones. 6. Hepatitis. 7. 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 Risks and benefits of the medication were again discussed. The patient feels that the medications are helpful. She feels that these enable her to do more. She is happier. Feels that the medications are serving the intended purpose. She is taking them as prescribed. She is not having any complications. She would like to continue with the medications. We have discussed the need for the patient to take medication as prescribed. She states that she continues to keep the medication in the guarded area. A script for her medications of tizanidine 4 mg 1 p.o. t.i.d., OxyIR 10 mg 1 p.o. t.i.d., Oxymorphone 10 mg 1 p.o. q.12 hours have been rewritten. The patient will call us if she has any concerns. We would like to thank you for letting us participate in her care. We hope she continues to improve. ��������������������������������������������� ���������������������������������������� By: ��������������������������������������������� [phone] Tucker Jordan MD /rosa
[2018-07-25 10:49] VITALS: BP 123/84
--- NOTE | 2018-07-25 10:52 | NUR ---
Pain Clinic Assessment: 1. History of Osteoarthritis: YES History of Rheumatoid Arthritis: NONE 2. Height: 5 ft. 1 in. 154.9 cm. Weight: 168.0 lb. oz. 76.204 kg. Patient's BMI: 31.8 3. Vital Signs: BP: 123/84 Pulse: 82 Resp: 16 Temp: 02 Sat: 96 ECG Mon: 4. Pain Intensity: 4 5. Fall Risk: Dizziness: N Needs help standing or walking: N Fallen in the last 3 months: N Fall risk comments: 6. Patient on Blood Thinner: None 7. History of Hypertension: Y 8. Opioid Therapy greater than 6 weeks: Y Opiate Contract Signed: 04/14/17 9. Risk Assessment Tool Provided: ISAIAS 10. Functional Assessment Tool: 11. Recreational Drug Use: Never Drug Type: Tobacco Use: Never Smoker Tobacco Type: Amount or Packs/day: How Many Years: Alcohol Use: No Frequency: Quant:
== END ==
LOC: PAIN 06:58
DX: M54.16 Radiculopathy, lumbar region (principal); D64.9 Anemia, unspecified; N20.0 Calculus of kidney; K75.9 Inflammatory liver disease, unspecified; Z86.11 Personal history of tuberculosis; Z86.79 Personal history of other diseases of the circulatory system; Z79.899 Other long term (current) drug therapy; Z88.8 Allergy status to other drugs, medicaments and biological substances; Z98.1 Arthrodesis status

== ENCOUNTER → 2018-08-17 | Outpatient (CLI) | payer OTHER ==
[~2018-08-17] VITALS: Ht 154.9 cm; Wt 80.3 kg
--- NOTE | ~2018-08-17 | HPC ---
[facility] [address] [place] [address] PAIN MANAGEMENT CONSULTATION Name: GERARD PARDO Room #: REG [facility].#: [id number] Admission: 08/17/18 ������������������ Attend Phys: Tucker Jordan MD Discharge: ������������������ Date of : 50 Report #: [id number] THIS REPORT FOR: //name// CC: JUDY Dupont. Pako Jordan DATE OF SERVICE: 08/17/2018 CHIEF COMPLAINT: Here for medications. HISTORY: The patient is a 67-year-old female who has been followed in the Pain Clinic because of lumbar radiculopathy. She suffers from pain, failed back syndrome. 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 She does have rods and instrumentation in her lower back. She finds her medications are helpful. Continues to have chronic pain. Denies any new changes in her pain. Feels that her medications are working reasonably well. She is thinking clearly. They are not causing any problems with her thinking. ALLERGIES: DYES, LATEX, MORPHINE, VALIUM, PENICILLIN, BARBITURATES. CURRENT MEDICATIONS: Estrace 0.25 mg, tizanidine 4 mg t.i.d., hydrochlorothiazide 25 mg, oxycodone immediate release 15 mg, omeprazole ER b.i.d., gabapentin 300 mg t.i.d. PAIN CLINIC ASSESSMENT/PQRS: 1. The patient has some arthritic change in the low portion of her back. The patient has had surgery. She is not being treated for rheumatoid arthritis. 2. Height 5 feet 1 inch, weight 177 pounds, BMI 35.5. 3. Vital Signs: Blood pressure 130/75, pulse 63, respiratory rate 16, room air saturation 95%. 4. Pain intensity, 2-3/10. 5. Fall risk. The patient has not fallen in the last 3 months. 6. Blood thinner. The patient is not on a blood thinning medication. 7. Hypertension. The patient is not being treated for hypertension. 8. Opioids greater than 6 weeks. 9. Risk assessment tool, low for opioid use. 10. Functional assessment tool, 57/70. 11. Recreational drug use. The patient denies. 12. Tobacco: The patient denies. 13. Alcohol. The patient denies frequent use of alcoholic beverages. PHYSICAL EXAMINATION: GENERAL: The patient is a well-developed, well-nourished white female. She is alert and oriented x 3. Her affect is appropriate. [place] [address] PAIN MANAGEMENT CONSULTATION Name: GERARD PARDO Room #: REG [facility]#: [id number] Admission: 08/17/18 ������������������ Attend Phys: Tucker Jordan MD Discharge: ������������������ Date of : 50 Report #: [id number] HEENT: Normocephalic, atraumatic. Extraocular eye muscles intact. The patient's is present. HEART: Regular rate. S1, S2. LUNGS: Clear to auscultation without rhonchi or rales. MUSCULOSKELETAL: Without significant scoliosis, kyphosis or lordosis. Upper extremity muscle strength is judged to be 5-/5 for the major muscle groups in the upper extremity. The patient continues to have pain and discomfort in the L5-S1 dermatomal distribution. Has some tremors in her hands bilaterally. She complains of back pain in the sacral area. IMPRESSION: 1. Lumbar radiculopathy with history of Henley rods and fusion of the lumbar spine. 2. Complex medical regimen using opioid medication to help control the pain. 3. History of tuberculosis. 4. Anemia. 5. Renal stones. 6. Hepatitis. 7. 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 At this juncture, we will continue with her medications. She feels that the medications are helpful. There is no problem with thinking. She is not having any problems with her bowel or bladder as a result of these medications. We explained to her and have discussed the problems with opioid medications. Working as a nurse, she is aware of. She realized that opioid medications can be addictive. They can be less effective over a period of time because of tolerance. At this juncture, she feels that her medications are working well. We will continue with her OxyIR 10 mg 1 p.o. t.i.d. and 90 tablets as well as oxymorphone 10 mg 1 p.o. q. 12 hours. The patient will continue with the muscle relaxant, tizanidine. She will call us if she has any concerns. We would like to thank you for letting us participate in her care. We continue to provide medications for the patient to help control her complex medical regimen. ��������������������������������������������� ���������������������������������������� By: ��������������������������������������������� 1947 0031 Tucker Jordan MD /rosa
[2018-08-17 10:16] VITALS: BP 130/75
--- NOTE | 2018-08-17 10:21 | NUR ---
Pain Clinic Assessment: 1. History of Osteoarthritis: back History of Rheumatoid Arthritis: NONE 2. Height: 5 ft. 1 in. 154.9 cm. Weight: 177.0 lb. oz. 80.287 kg. Patient's BMI: 33.5 3. Vital Signs: BP: 130/75 Pulse: 63 Resp: 16 Temp: 02 Sat: 95 ECG Mon: 4. Pain Intensity: 2-3 5. Fall Risk: Dizziness: N Needs help standing or walking: N Fallen in the last 3 months: N Fall risk comments: 6. Patient on Blood Thinner: None 7. History of Hypertension: Y 8. Opioid Therapy greater than 6 weeks: Y Opiate Contract Signed: 04/14/17 9. Risk Assessment Tool Provided: 1-LOW 10. Functional Assessment Tool: 11. Recreational Drug Use: Never Drug Type: Tobacco Use: Never Smoker Tobacco Type: Amount or Packs/day: How Many Years: Alcohol Use: No Frequency: Quant:
== END ==
LOC: PAIN 06:48
DX: Z76.0 Encounter for issue of repeat prescription (principal); M54.16 Radiculopathy, lumbar region; Z88.5 Allergy status to narcotic agent; Z88.0 Allergy status to penicillin; Z88.1 Allergy status to other antibiotic agents; Z91.040 Latex allergy status; Z79.899 Other long term (current) drug therapy; Z79.891 Long term (current) use of opiate analgesic; Z86.11 Personal history of tuberculosis; Z87.442 Personal history of urinary calculi

== ENCOUNTER → 2018-09-21 | Outpatient (CLI) | payer OTHER ==
[~2018-09-21] VITALS: Ht 154.9 cm; Wt 79.8 kg
--- NOTE | ~2018-09-21 | HPC ---
[facility] [address] [address] PAIN MANAGEMENT CONSULTATION Name: GERARD PARDO Room #: REG [facility] MRefugio.#: [id number] Admission: 09/21/18 ������������������ Attend Phys: Tucker Jordan MD Discharge: ������������������ Date of : 50 Report #: [id number] THIS REPORT FOR: //name// CC: JUDY Dupont. Pako Jordan DATE OF SERVICE: 09/21/2018 CHIEF COMPLAINT: "Here for medications. Things are going well." HISTORY: The patient is a 67-year-old female. She has been followed in the pain clinic because of chronic back pain. She has had back surgery in the past. She has returned to the pain clinic for renewal of her medications. She has instrumentation in her low back area with rods, but chronic pain continues to be problematic. She notes some discomfort in her neck and right hip as well. She feels that her medications are helpful. She would like to continue with her medical management of her pain. She does not have any problems with the opioid medications. No problems with bowel or bladder function. She is thinking clearly. 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 Rates her pain as a 3/10 at this point. She has returned for renewal of medications. ALLERGIES: DYES, LATEX, MORPHINE, VALIUM, PENICILLIN, AND BARBITURATES. CURRENT MEDICATIONS: Estrace 0.25 mg, tizanidine 4 mg t.i.d., hydrochlorothiazide 25 mg, oxycodone immediate release 15 mg, omeprazole ER b.i.d., gabapentin 300 mg t.i.d. PAIN CLINIC ASSESSMENT/PQRS: 1. The patient has some arthritic changes in the lower portion of her back. She has had back surgery. She has not been treated for rheumatoid arthritis. 2. Height 5 feet 1 inch, weight 176 pounds and BMI is 33. 3. Vital Signs: Blood pressure 127/64, pulse 80, respiratory rate 16, room air saturation 97%. 4. Pain intensity is 3/10. Pain is in the mid to lower back area within the pain in the hips and neck. 5. Fall history. The patient has not fallen in the last 3 months. 6. Blood thinner. The patient is not on a blood thinning medication. 7. Hypertension. The patient is not being treated for hypertension. 8. Opiates greater than 6 weeks. The patient has received her medication from one source, the pain clinic. 9. Risk assessment tool, low for opioid use. 10. Functional assessment tool 57/70. 11. Recreational drug use. The patient denies. 12. Tobacco: The patient has never smoked. [address] [address] PAIN MANAGEMENT CONSULTATION Name: GERARD PARDO [facility] [id number] Admission: 09/21/18 ������������������ Attend Phys: Tucker Jordan MD Discharge: ������������������ Date of : 50 Report #: [id number] 13. Alcohol: The patient denies frequent use of alcoholic beverages. PHYSICAL EXAMINATION: GENERAL: The patient is a well-developed, well-nourished white female. Appears her stated age. She is alert and oriented x 3. Her affect is appropriate. Speech is fluent. HEENT: Normocephalic, atraumatic. Extraocular eye muscles intact. Sclerae nonicteric. Mucous membrane is moist. The patient's is present. HEART: Regular rate. S1, S2. LUNGS: Clear to auscultation without rhonchi or rales. MUSCULOSKELETAL: Without significant scoliosis, kyphosis or lordosis. Upper extremity muscle strength is judged to be 5-/5 for the major muscle groups in the upper extremity. The patient has pain and discomfort in lower portion of her back with pain that involves in the low back area in the L5-S1 dermatomal distribution. The patient has some tremors in her hands bilaterally. Complains of pain in the sacral area as well. IMPRESSION: 1. Lumbar radiculopathy with history of Henley rods and fusion of the lumbar spine. 2. Complex medical regimen using opioids to control pain. 3. History of tuberculosis. 4. Anemia. 5. Renal stones. 6. Hepatitis. 7. History of liver disease. 8. 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 She has some tremulousness in her hands. 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 At this juncture, she feels her medications continue to be helpful. She keeps her medications in a guarded area. As a nurse, she is aware of the problems with opioids. She feels that her medications are working reasonably well. She is not having any real complaints with them. She keeps them in a guarded area. She is aware that opioid medications can become less effective over time as a result of chronic use because of tolerance. She is aware that 70,000 people last year as a result of opioid overdose. She keeps her medication in a guarded area. She is able to engage in activities, she would not be able to without their use. A script for her medications of OxyIR 10 mg 1 p.o. t.i.d., 90 tablets as well as oxymorphone 10 mg hours have been rewritten. The patient also finds her muscle relaxant is helpful. Tizanidine will be continued. She is not having any problems with sensory perception or mentation with the current use of her medications. [facility] [address] [place] [address] PAIN MANAGEMENT CONSULTATION Name: CUTGERARD NAVARRETE Room #: REG [facility].#: [id number] Admission: 09/21/18 ������������������ Attend Phys: Tucker Jordan MD Discharge: ������������������ Date of : 50 Report #: [id number] We would like to thank you for letting us participate in her care. We hope she continues to improve. ��������������������������������������������� ���������������������������������������� By: ��������������������������������������������� 1119 1528 Tucker Jordan MD /nt
[2018-09-21 12:48] VITALS: BP 127/64
--- NOTE | 2018-09-21 13:01 | NUR ---
Pain Clinic Assessment: 1. History of Osteoarthritis: back History of Rheumatoid Arthritis: NONE 2. Height: 5 ft. 1 in. 154.9 cm. Weight: 176.0 lb. oz. 79.833 kg. Patient's BMI: 33.3 3. Vital Signs: BP: 127/64 Pulse: 80 Resp: 16 Temp: 02 Sat: 97 ECG Mon: 4. Pain Intensity: 3 5. Fall Risk: Dizziness: N Needs help standing or walking: N Fallen in the last 3 months: N Fall risk comments: 6. Patient on Blood Thinner: None 7. History of Hypertension: Y 8. Opioid Therapy greater than 6 weeks: Y Opiate Contract Signed: 04/14/17 9. Risk Assessment Tool Provided: 1-LOW 10. Functional Assessment Tool: 11. Recreational Drug Use: Never Drug Type: Tobacco Use: Never Smoker Tobacco Type: Amount or Packs/day: How Many Years: Alcohol Use: No Frequency: Quant:
== END ==
LOC: PAIN 06:45
DX: M54.16 Radiculopathy, lumbar region (principal); M43.26 Fusion of spine, lumbar region; D64.9 Anemia, unspecified; K75.9 Inflammatory liver disease, unspecified; N20.0 Calculus of kidney; Z79.891 Long term (current) use of opiate analgesic; Z79.899 Other long term (current) drug therapy; Z91.040 Latex allergy status; Z88.0 Allergy status to penicillin; Z88.8 Allergy status to other drugs, medicaments and biological substances; Z88.6 Allergy status to analgesic agent

== ENCOUNTER → 2018-10-19 | Outpatient (CLI) | payer OTHER ==
[~2018-10-19] VITALS: Ht 154.9 cm; Wt 78.9 kg
--- NOTE | ~2018-10-19 | HPC ---
[facility] [address] [place] [address] PAIN MANAGEMENT CONSULTATION Name: GERARD PARDO [facility] [id number] Admission: 10/19/18 Attend Phys: Tucker Jordan MD Discharge: Date of : 50 Report #: [id number] THIS REPORT FOR: //name// CC: JUDY Dupont. Pako Jordan DATE OF SERVICE: 10/19/2018 CHIEF COMPLAINT: Here for medication renewal. HISTORY: The patient is a 67-year-old female who has been followed in the pain clinic. As you may recall, she has had surgery on her back in the past. Continues to have lumbar radicular pain. She does have a series of rods placed in her back with instrumentation. She finds that her medications today are helpful. She uses the opioid medications to help control her discomfort. Does not have any problems with bowels or bladder. She is not having any problems with mentation. 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 ALLERGIES: DYES, LATEX, MORPHINE, VALIUM, PENICILLIN, AND BARBITURATES. CURRENT MEDICATIONS: Estrace 0.25 mg, tizanidine 4 mg t.i.d., hydrochlorothiazide 25 mg, oxycodone immediate release 15 mg, omeprazole ER b.i.d., gabapentin 300 mg t.i.d. PAIN CLINIC ASSESSMENT AND PQRS: 1. The patient has some arthritic changes in the lower portion of her back. She has had back surgery. She is not being treated for rheumatoid arthritis. 2. Height 5 feet 1 inch, weight 174 pounds, BMI is 32.9. 3. Vital Signs: Blood pressure 126/73, pulse 84, respiratory rate 16, room air saturation 96%. 4. Pain intensity 05/20. 5. Fall history: The patient has not fallen in the last 3 months. 6. Blood thinner. The patient is not on a blood thinning medication. 7. Hypertension. The patient is being treated for hypertension. 8. Opioids greater than 6 weeks. The patient receives her medication from one source, the pain clinic. 9. Risk assessment tool, low for opioid use. 10. Functional assessment tool 57/70. 11. Recreational drug use. The patient denies. 12. Tobacco: The patient denies use of tobacco. 13. Alcohol: The patient denies use of alcoholic beverages. PHYSICAL EXAMINATION: GENERAL: The patient is a well-developed, well-nourished white female. Appears her stated age. She is alert and oriented x 3. Her affect is appropriate. [address] [address] PAIN MANAGEMENT CONSULTATION Name: GERARD PARDO Room #: REG [facility]#: [id number] Admission: 10/19/18 Attend Phys: Tucker Jordan MD Discharge: Date of : 50 Report #: [id number] Speech is fluent. HEENT: Normocephalic, atraumatic. Extraocular eye muscles intact. Sclerae nonicteric. Mucous membranes are moist. HEART: Regular rate. S1, S2. LUNGS: Clear to auscultation without rhonchi or rales. MUSCULOSKELETAL: Without significant scoliosis, kyphosis, or lordosis. Upper extremity muscle strength judged to be 5/5 for the major muscle groups in the upper extremity. The patient has pain and discomfort in lower portion of her back with pain that radiates down the L5-S1 dermatomal distribution. The patient has some tremors in her hands bilaterally. Complains of some pain in the sacral area. IMPRESSION: 1. Lumbar radicular pain with history of Henley rods and fusion of the lumbar spine. 2. Complex medical regimen using opioids to control pain. 3. History of tuberculosis. 4. Anemia. 5. Renal stones. 6. Hepatitis. 7. History of liver disease. 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 9. Tremulousness in her hands. 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 At this juncture, she will continue with her medication. States that the medication is working well. Does not have any problems with her mentation. She is able to think clearly. Is not causing problems with addiction. The patient is aware that opioid medications can be problematic in some patients. She does not show any signs of addiction. She is taking the medication as prescribed. She is aware that the pain medications may become less effective as time wears on because of development of tolerance. She has been followed up in the pain clinic for greater than a year. She has taken the medication as prescribed. At this juncture, she will return to the Pain clinic and we will begin writing her medications for buy monthly refills. She and her are present. A script for her medications have been written. She will continue with tizanidine 4 mg 1 p.o. t.i.d. as needed for muscle spasms. She will continue with the oxymorphone 10 mg 1 p.o. b.i.d. and she will also continue with the OxyIR 10 mg 1 p.o. t.i.d. We would like to thank you for letting us participate in her care. We hope she continues to improve. By: [id number] 0315 Tucker Jordan MD /rosa
[2018-10-19 12:53] VITALS: BP 126/73
--- NOTE | 2018-10-19 12:55 | NUR ---
Pain Clinic Assessment: 1. History of Osteoarthritis: back History of Rheumatoid Arthritis: NONE 2. Height: 5 ft. 1 in. 154.9 cm. Weight: 174.0 lb. oz. 78.926 kg. Patient's BMI: 32.9 3. Vital Signs: BP: 126/73 Pulse: 84 Resp: 16 Temp: 02 Sat: 96 ECG Mon: 4. Pain Intensity: 3 5. Fall Risk: Dizziness: N Needs help standing or walking: N Fallen in the last 3 months: N Fall risk comments: 6. Patient on Blood Thinner: None 7. History of Hypertension: Y 8. Opioid Therapy greater than 6 weeks: Y Opiate Contract Signed: 04/14/17 9. Risk Assessment Tool Provided: 1-LOW 10. Functional Assessment Tool: 11. Recreational Drug Use: Never Drug Type: Tobacco Use: Never Smoker Tobacco Type: Amount or Packs/day: How Many Years: Alcohol Use: No Frequency: Quant:
== END ==
LOC: PAIN 06:51
DX: M54.16 Radiculopathy, lumbar region (principal); D64.9 Anemia, unspecified; N20.0 Calculus of kidney; K75.89 Other specified inflammatory liver diseases; K76.9 Liver disease, unspecified; Z88.0 Allergy status to penicillin; Z91.040 Latex allergy status; Z88.8 Allergy status to other drugs, medicaments and biological substances; Z98.1 Arthrodesis status; Z79.891 Long term (current) use of opiate analgesic; Z79.899 Other long term (current) drug therapy

== ENCOUNTER → 2018-11-14 | Outpatient (CLI) | payer OTHER ==
[~2018-11-14] VITALS: Ht 154.9 cm; Wt 74.8 kg
--- NOTE | ~2018-11-14 | HPC ---
[facility] [address] [place] [address] PAIN MANAGEMENT CONSULTATION Name: GERARD PARDO Room #: REG [facility] Aime.#: [id number] Admission: 11/14/18 ������������������ Attend Phys: Tucker Jordan MD Discharge: ������������������ Date of : 50 Report #: [id number] THIS REPORT FOR: //name// CC: JUDY Dupont. Pako Jordan DATE OF SERVICE: 11/14/2018 CHIEF COMPLAINT: Here for medication renewal. HISTORY: The patient is a 68-year-old female who has been followed in the Pain Clinic. As you may recall, she has had surgery in the past. She has continued to have some back pain and discomfort. She has had a series of rods and instrumentation in her low back. She returns today for renewal of her medications. She feels her medications are working well. She has had no complications with their use. She has not had any problems with her bowel or bladder dysfunction. 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 ALLERGIES: DYES, LATEX, MORPHINE, VALIUM, PENICILLIN, BARBITURATES. CURRENT MEDICATIONS: Esterase 0.25 mg, tizanidine 4 mg t.i.d., hydrochlorothiazide 25 mg, oxycodone immediate release 15 mg, omeprazole b.i.d., and gabapentin 300 mg t.i.d. PAIN CLINIC ASSESSMENT/PQRS: 1. The patient has some arthritic changes in the lower portion of her back. She has had back surgery. She is not being treated for rheumatoid arthritis. 2. Height 5 feet 1 inch, weight 165 pounds, BMI 31.2. 3. Vital Signs: Blood pressure 147/82, pulse 87, respiratory rate 14, room air saturation 93%. 4. Pain intensity, 2-3/10. 5. Fall history: The patient has not fallen. 6. Blood thinner. The patient is not on a blood thinning medication. 7. Hypertension. The patient is not being treated for hypertension. 8. Opioids. The patient receives medication from one source the Pain Clinic. 9. Risk assessment tool, low for opioid use. 10. Functional assessment tool, 57/70. 11. Recreational drug use. The patient denies. 12. Tobacco: The patient has never smoked. 13. Alcohol. The patient denies frequent use of alcoholic beverages. PHYSICAL EXAMINATION: GENERAL: The patient is a well-developed, well-nourished white female. Appears her stated age. She is alert and oriented x 3. Her affect is appropriate. Speech is fluent. HEENT: Normocephalic, atraumatic. Extraocular eye muscles intact. Sclerae [address] [address] PAIN MANAGEMENT CONSULTATION Name: GERARD PARDO Room #: REG [facility].#: [id number] Admission: 11/14/18 ������������������ Attend Phys: Tucker Jordan MD Discharge: ������������������ Date of : 50 Report #: [id number] nonicteric. Mucous membranes are moist. HEART: Regular rate. S1, S2. LUNGS: Clear to auscultation without rhonchi or rales. MUSCULOSKELETAL: Without significant scoliosis, kyphosis or lordosis. Upper extremity muscle strength judged to be 5/5 for the major muscle groups in the upper extremity. Lower extremity muscle strength is 5/5 for the major muscle groups in the lower extremity. The patient has pain and discomfort in her hands bilaterally with tremors. She also has some pain and discomfort in the sacral area. IMPRESSION: 1. Lumbar radiculopathy with history of Henley rods and fusion of the lumbar spine. 2. Complex medical regimen with opioids to control pain. 3. History of tuberculosis. 4. Anemia. 5. Renal stones. 6. Hepatitis. 7. History of liver disease. 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 9. Tremulousness in her hands. 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 We will continue with her current medical regimen. She has been taking the medications for 1 year. She has had no complications. We will extend her medications to a bimonthly renewal. The patient is aware of the possible complications with opioids, which could cause addiction as well as become less effective because of development of tolerance. A script for her medications have been written. She will continue with the tizanidine 4 mg 1 p.o. t.i.d., total of 90 tablets have been dispensed. She will continue with oxymorphone 10 mg 1 p.o. q. 12 hours. She will also continue with OxyIR 10 mg 1 p.o. t.i.d. We would like to thank you for letting us participate in her care. We hope she continues to improve. ��������������������������������������������� ���������������������������������������� By: ��������������������������������������������� 0918 1408 Tucker Jordan MD /rosa
[2018-11-14 13:15] VITALS: BP 147/82
--- NOTE | 2018-11-14 13:18 | NUR ---
Pain Clinic Assessment: 1. History of Osteoarthritis: back History of Rheumatoid Arthritis: NONE 2. Height: 5 ft. 1 in. 154.9 cm. Weight: 165.0 lb. oz. 74.844 kg. Patient's BMI: 31.2 3. Vital Signs: BP: 147/82 Pulse: 87 Resp: 14 Temp: 02 Sat: 93 ECG Mon: 4. Pain Intensity: 2-3 5. Fall Risk: Dizziness: N Needs help standing or walking: N Fallen in the last 3 months: N Fall risk comments: 6. Patient on Blood Thinner: None 7. History of Hypertension: Y 8. Opioid Therapy greater than 6 weeks: Y Opiate Contract Signed: 04/14/17 9. Risk Assessment Tool Provided: 1-LOW 10. Functional Assessment Tool: 11. Recreational Drug Use: Never Drug Type: Tobacco Use: Never Smoker Tobacco Type: Amount or Packs/day: How Many Years: Alcohol Use: No Frequency: Quant:
== END ==
LOC: PAIN 06:54
DX: M54.16 Radiculopathy, lumbar region (principal); D64.9 Anemia, unspecified; N20.0 Calculus of kidney; K75.9 Inflammatory liver disease, unspecified; Z91.040 Latex allergy status; Z88.8 Allergy status to other drugs, medicaments and biological substances; Z88.0 Allergy status to penicillin; Z79.899 Other long term (current) drug therapy

== ENCOUNTER → 2019-01-30 | Outpatient (CLI) | payer OTHER ==
[~2019-01-30] VITALS: Ht 154.9 cm; Wt 81.6 kg
[~2019-01-30] MED LIST changes: +ABILIFY 2 MG2 M1 PO
[2019-01-30 10:58] VITALS: BP 141/75
--- NOTE | 2019-01-30 11:05 | NUR ---
Pain Clinic Assessment: 1. History of Osteoarthritis: BACK History of Rheumatoid Arthritis: NONE 2. Height: 5 ft. 1 in. 154.9 cm. Weight: 180.0 lb. oz. 81.648 kg. Patient's BMI: 34.0 3. Vital Signs: BP: 141/75 Pulse: 77 Resp: 16 Temp: 02 Sat: 98 ECG Mon: 4. Pain Intensity: 2 5. Fall Risk: Dizziness: N Needs help standing or walking: N Fallen in the last 3 months: N Fall risk comments: 6. Patient on Blood Thinner: None 7. History of Hypertension: Y 8. Opioid Therapy greater than 6 weeks: Y Opiate Contract Signed: 04/14/17 9. Risk Assessment Tool Provided: 1-LOW 10. Functional Assessment Tool: 11. Recreational Drug Use: Never Drug Type: Tobacco Use: Never Smoker Tobacco Type: Amount or Packs/day: How Many Years: Alcohol Use: No Frequency: Quant:
--- NOTE | 2019-02-05 09:25 | HPC ---
[facility] [address] [place] [address] PAIN MANAGEMENT CONSULTATION Name: GERARD PARDO [id number] Admission: 01/30/19 Attend Phys: Tucker Jordan MD Discharge: Date of : 50 Report #: [id number] THIS REPORT FOR: //name// CC: JUDY Brown. Pako Jordan DATE OF SERVICE: 01/30/2019 CHIEF COMPLAINT: Here for medications and things are going well, not having any problems. HISTORY: The patient is a 68-year-old female who has been followed in the pain clinic. As you recall, she has had back surgery. 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 Has pain and discomfort down in the back area. She has had rods and screws in the lower portion of her back. She feels that her current medical regimen is helpful. 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 Overall, she is feeling reasonably well with her current medication regimen. Not having any problems with her thinking. Not having any problems with her bowel or bladder function. She has returned today for renewal of the medications. She feels that these medications, continue to enable her to engage in activities of daily living at much greater level as much discomfort as she would without their use. ALLERGIES: DYE, LATEX, MORPHINE, VALIUM, PENICILLIN, AND BARBITURATES. CURRENT MEDICATIONS: Estrace 0.25 mg, tizanidine 4 mg t.i.d., hydrochlorothiazide 25 mg, oxycodone immediate release 15 mg, omeprazole b.i.d., and gabapentin 300 mg t.i.d. PAIN CLINIC ASSESSMENT AND PQRS: 1. The patient has some changes in her lower back. She has undergone surgery. She is not being treated for rheumatoid arthritis. 2. Height 5 feet 1 inch, weight 180 pounds, BMI is 34. 3. Vital signs: Blood pressure 141/75, pulse 77, respiratory rate 16, room air saturation is 98%. 4. Pain intensity 04/22. 5. Fall history: The patient has not fallen in the last 3 months. 6. Blood thinner. The patient is not on a blood thinning medication. 7. Hypertension. The patient is not being treated for hypertension. 8. Opioids greater than 6 weeks. The patient has not received her medication from one source the pain clinic. 9. Risk assessment tool, low for opioid use. 10. Functional assessment tool 57/70. 11. Recreational drugs: The patient denies. 12. Tobacco: The patient has never smoked. 13. Alcohol. The patient denies use of alcoholic beverages. [address] [address] PAIN MANAGEMENT CONSULTATION Name: GERARD PARDO Room #: REG [facility]#: [id number] Admission: 01/30/19 Attend Phys: Tucker Jordan MD Discharge: Date of : 50 Report #: [id number] PHYSICAL EXAMINATION: GENERAL: The patient is a well-developed, well-nourished white female. Appears her stated age. She is alert and oriented x 3. Her affect is appropriate. Speech is fluent. HEENT: Normocephalic, atraumatic. Extraocular eye muscles intact. Sclerae nonicteric. Mucous membranes are moist. MUSCULOSKELETAL: The patient has some pain in the neck area. States that she has chipped the axis bone in her neck. She has some pain and discomfort in the lower thoracic area. Has pain from approximately T12 area down to the sacral area. She does have some paraspinous muscle soreness and discomfort associated with this. The patient is without significant scoliosis, kyphosis, or lordosis. EXTREMITIES: Upper extremity muscle strength judged to be 5-/5 for the major muscle groups in the upper extremity. Lower extremity muscle strength 5-/5 for the major muscle groups in the lower extremity. Has some discomfort in her hands with tremors bilaterally. IMPRESSION: 1. Lumbar radiculopathy with history of Henley rods and fusion of the lumbar spine. 2. Complex medical regimen using opioids to help control pain. 3. History of tuberculosis. 4. Anemia. 5. Renal stones. 6. Hepatitis. 7. History of liver disease. 8. Tremulousness in hands. 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 At this juncture, she feels her medications are helpful. 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 Does have some chronic pain associated with her low back. She has had surgery with instrumentation. She does not have any problems with her bowel or bladder function. She is able to think clearly. She is aware that opioid medications can become less effective over a period of time. She does not show any signs of addiction. She feels that the medications enable her to continue, but maintain a active life. A script for her medications has been rewritten. We will continue with the patient use of tizanidine 1 mg one p.o. t.i.d. Total of 90 tablets. She also continue with oxymorphone 10 mg 1 p.o. q. 12 hours. The patient will also continue with OxyIR 10 mg 1 p.o. t.i.d. [address] [address] PAIN MANAGEMENT CONSULTATION Name: GERARD PARDO Room #: REG [facility] Laney#: [id number] Admission: 01/30/19 Attend Phys: Tucker Jordan MD Discharge: Date of : 50 Report #: [id number] We would like to thank you for letting us participate in her care. We hope she continues to improve. <ELECTRONICALLY SIGNED> By: Tucker Jordan MD 02/05/19 0925 0025 Tucker Jordan MD /nt
== END ==
LOC: PAIN 07:05
DX: M54.16 Radiculopathy, lumbar region (principal); D64.9 Anemia, unspecified; N20.0 Calculus of kidney; K75.9 Inflammatory liver disease, unspecified; Z79.891 Long term (current) use of opiate analgesic

== ENCOUNTER → 2019-03-27 | Outpatient (CLI) | payer OTHER ==
[~2019-03-27] VITALS: Ht 157.5 cm; Wt 85.7 kg
[2019-03-27 14:03] VITALS: BP 123/68
--- NOTE | 2019-03-27 14:06 | NUR ---
Pain Clinic Assessment: 1. History of Osteoarthritis: BACK History of Rheumatoid Arthritis: NONE 2. Height: 5 ft. 2 in. 157.5 cm. Weight: 189.0 lb. oz. 85.730 kg. Patient's BMI: 34.6 3. Vital Signs: BP: 123/68 Pulse: 79 Resp: 18 Temp: 02 Sat: 97 ECG Mon: 4. Pain Intensity: 2-3 5. Fall Risk: Dizziness: N Needs help standing or walking: N Fallen in the last 3 months: N Fall risk comments: 6. Patient on Blood Thinner: None 7. History of Hypertension: Y 8. Opioid Therapy greater than 6 weeks: Y Opiate Contract Signed: 04/14/17 9. Risk Assessment Tool Provided: 1-LOW 10. Functional Assessment Tool: / 11. Recreational Drug Use: Never Drug Type: Tobacco Use: Never Smoker Tobacco Type: Amount or Packs/day: How Many Years: Alcohol Use: No Frequency: Quant:
--- NOTE | 2019-04-03 16:47 | HPC ---
[facility] [address] [place] [address] PAIN MANAGEMENT CONSULTATION Name: GERARD PARDO Room #: REG [facility] Lane[place].#: [id number] Admission: 03/27/19 Attend Phys: Tucker Jordan MD Discharge: Date of : 50 Report #: [id number] THIS REPORT FOR: //name// CC: JUDY Brown. Pako Jordan DATE OF SERVICE: 03/27/2019 CHIEF COMPLAINT: Medications continue to be helpful. HISTORY: The patient is a 68-year-old female who has been followed in the Pain Clinic. As you recall, she has had back surgery. 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 She finds that her medications continue to be helpful, they enable her to engage in activities of daily living. She rates her pain as a 2-3 today. Notes that she has some pain in the low back and radiates down into the sacrum. Occasionally, she has pain that shoots down into her legs at the level of her ankles. She has some numbness and tingling in her feet and toes. Pain has been problematic since 2001. She describes the pain and discomfort as sharp, aching, tenderness with numbness and tingling. She rates it as a 2-3 today. Notes that her pain is exacerbated by prolonged standing, walking too long, standing or sitting for too long. The patient improves with use of her medications, lying down, and use of hot and cold compresses. She has returned today with the hopes of renewing her medications. ALLERGIES: DYE, LATEX, MORPHINE, VALIUM, PENICILLIN, BARBITURATES. CURRENT MEDICATIONS: Estrace 0.25 mg, tizanidine 4 mg t.i.d., hydrochlorothiazide 25 mg, oxycodone immediate release 15 mg, omeprazole b.i.d., gabapentin 300 mg t.i.d., and oxymorphone 10 mg b.i.d. PAIN CLINIC ASSESSMENT AND PQRS: 1. The patient has some changes in her low back area. She has undergone surgery in the back area. She is not being treated for rheumatoid arthritis. 2. Height 5 feet 2 inches, weight 189 pounds, BMI is 34.6. 3. Vital signs: Blood pressure 123/68, pulse 79, respiratory rate 18, room air saturation 97%. 4. Pain intensity: 2-3/10. 5. Fall history: The patient has not fallen since we saw her last. 6. Blood thinner: The patient is not on a blood thinning medication. 7. Hypertension: The patient is being treated for hypertension. 8. Opioids greater than 6 weeks: The patient receives medications from one source from Pain Clinic. 9. Risk assessment tool: Low for opioid use. 10. Functional assessment tool: 57/70. 11. Recreational drug use: [place] [address] PAIN MANAGEMENT CONSULTATION Name: GERARD PARDO Room #: REG [facility] Tatyana#: [id number] Admission: 03/27/19 Attend Phys: Tucker Jordan MD Discharge: Date of : 50 Report #: [id number] 12. Tobacco: The patient has never smoked. 13. Alcohol: The patient denies use of alcoholic beverages. PHYSICAL EXAMINATION: GENERAL: The patient is a well-developed, well-nourished, white female. Appears her stated age. She is alert and oriented x 3. Her affect is appropriate. Speech is fluent. HEENT: Normocephalic, atraumatic. Extraocular eye muscles intact. Sclerae nonicteric. Mucous membranes are moist. The patient has some pain and discomfort in her neck. She has complained that she has a chipped bone in her neck. She has some pain and discomfort in the thoracic area. MUSCULOSKELETAL: The patient is without significant scoliosis, kyphosis or lordosis. Upper extremity muscle strength is judged to be 5/5 for the major muscle groups in the upper extremity. Lower extremity muscle strength is judged to be 5-/5 for the major muscle groups in the lower extremity. The patient has some discomfort in her hands with tremors bilaterally. IMPRESSION: 1. Lumbar radiculopathy with history of Henley rods and fusion of the lumbar spine. 2. Complex medical management using opioids to help control pain. 3. History of tuberculosis. 4. Anemia. 5. Renal stones. 6. Hepatitis. 7. History of liver disease. 8. Tremulousness in hands. 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 At this juncture, we will continue with her current medications. She feels the medications are working reasonably well. She is aware that opioid medications can be problematic. The patient is not showing any signs of overt use of her medications. She feels that these medications enable her to engage in activities of daily living she would not be able to without their use. She keeps her medications in a guarded area. She would like to continue with the medications. We will rewrite her medications for the next 2 months. The patient will continue with oxycodone 10 mg 1 p.o. t.i.d. The patient will also continue with tizanidine 4 mg 1 p.o. t.i.d. She will continue with oxymorphone 10 mg 1 p.o. b.i.d. The patient will call us if she has any concerns about her medications. [facility] [address] [place] [address] PAIN MANAGEMENT CONSULTATION Name: CUTGERARD NAVARRETE Room #: REG [facility].#: [id number] Admission: 03/27/19 Attend Phys: Tucker Jordan MD Discharge: Date of : 50 Report #: [id number] We would like to thank you for letting us participate in her care. We hope she continues to improve. <ELECTRONICALLY SIGNED> By: Tucker Jordan MD 04/03/19 1647 [id number] Tucker Jordan MD /nt
== END ==
LOC: PAIN 12:55
DX: M54.16 Radiculopathy, lumbar region (principal); A15.9 Respiratory tuberculosis unspecified; D64.9 Anemia, unspecified; N20.0 Calculus of kidney; K75.9 Inflammatory liver disease, unspecified

== ENCOUNTER → 2019-06-05 | Outpatient (CLI) | payer OTHER ==
[~2019-06-05] VITALS: Ht 157.5 cm; Wt 90.7 kg
[2019-06-05 13:55] VITALS: BP 129/77
--- NOTE | 2019-06-05 14:00 | NUR ---
Pain Clinic Assessment: 1. History of Osteoarthritis: BACK History of Rheumatoid Arthritis: NONE 2. Height: 5 ft. 2 in. 157.5 cm. Weight: 200.0 lb. oz. 90.720 kg. Patient's BMI: 36.6 3. Vital Signs: BP: 129/77 Pulse: 90 Resp: 12 Temp: 02 Sat: 99 ECG Mon: 4. Pain Intensity: 2-3 5. Fall Risk: Dizziness: N Needs help standing or walking: N Fallen in the last 3 months: N Fall risk comments: 6. Patient on Blood Thinner: None 7. History of Hypertension: Y 8. Opioid Therapy greater than 6 weeks: Y Opiate Contract Signed: 04/14/17 9. Risk Assessment Tool Provided: 1-LOW 10. Functional Assessment Tool: 11. Recreational Drug Use: Never Drug Type: Tobacco Use: Never Smoker Tobacco Type: Amount or Packs/day: How Many Years: Alcohol Use: No Frequency: Quant:
--- NOTE | 2019-06-06 13:40 | HPC ---
[facility] [address] [place] [address] PAIN MANAGEMENT CONSULTATION Name: GERARD PARDO Room #: REG [facility].#: [id number] Admission: 06/05/19 Attend Phys: Jennifer Lora Discharge: Date of : 50 Report #: [id number] THIS REPORT FOR: cc: JUDY BELL Leila. Jennifer Haas ~ DATE OF SERVICE: 06/05/2019 CHIEF COMPLAINT: Chronic low back pain. HISTORY OF PRESENT ILLNESS: This is a 68-year-old female who returns to the pain clinic today for refill of her medications that she uses to help treat her ongoing back pain. She reports a pain score of 2-3 today with her medications. She feels that they are very beneficial in controlling her pain. She is able to be active around the house. She is retired, but she keeps very active at home. The oxycodone and oxymorphone do not give her problems of constipation or daytime sleepiness. She reports occasionally her pain is a sharp, aching pain, worse with prolonged standing and walking and activities. She reports that the medications as well as heat and cold alternating are beneficial. ALLERGIES: DIAZEPAM, PENICILLIN AND LATEX. CURRENT LIST OF MEDICATIONS: OxyIR 10 mg t.i.d., tizanidine, oxymorphone 10 mg b.i.d., Abilify, Desyrel, paroxetine, Singulair, Lunesta, Neurontin. PATIENT'S PQRS: 1. The patient has arthritic changes in her lower back. She is not being treated for rheumatoid arthritis. 2. Height is 5 feet and 2 inches, weight is 200, BMI is 36. 3. Vital signs: 129/77, pulse is 90, respirations 12, oxygen sat is 99. 4. Pain score is 2-3. 5. Denies dizziness, does not need help walking or standing, has not fallen in the last 3 months. 6. The patient is not on any blood thinners, but does have hypertension. Her opioid therapy is greater than 6 weeks; therefore, an opioid signed contract is on the chart. Risk assessment tool is low. Functional assessment is 57/70. 7. Recreational drug use, she denies. She is not a smoker and does not drink alcohol. According to the prescription monitoring system, the patient is filling appropriately for her medications and she is due to fill those medications today. We will obtain a random drug screen on this patient at her next visit and it has been greater than a year since her last one was performed. PHYSICAL EXAMINATION: [address] [address] PAIN MANAGEMENT CONSULTATION Name: GERARD PARDO Room #: REG [facility] Tatyana#: [id number] Admission: 06/05/19 Attend Phys: Jennifer Lora Discharge: Date of : 50 Report #: [id number] GENERAL: This is alert and orientated, well-developed, well-nourished 68-year-old female who appears her stated age, placing her current pain score at 2/10 today. Her affect is appropriate. HEENT: Normocephalic, atraumatic. Extraocular eye muscles are intact. She has discomfort in her neck, worse with flexion and extension. MUSCULOSKELETAL: The patient is without significant scoliosis, kyphosis or lordosis. She has pain that radiates across the lumbosacral region and occasionally in her thoracic area that radiates into her bilateral legs. Her lower extremity strength judged to be 5/5 in all major muscle groups with good sensation from L1-S2. IMPRESSION: 1. Lumbar radiculopathy with a history of Henley rods and fusion. 2. History of tuberculosis. 3. Anemia, history of liver disease, complex medical management using opioid medications. We reviewed the fact that opiate medications are being used to provide analgesia adequate to support activities of daily living, not attempting to achieve a specific pain score on the 0-10 Visual Analog Scale. The current opiate medications are providing sufficient analgesia to allow the patient to participate in activities of daily living. The patient is not exhibiting any aberrant behavior suggestive of drug diversion. The patient is not having any adverse reactions to medications. The patient is not suffering from daytime somnolence or mental acuity changes. The patient is managing opiate-induced constipation with appropriate [id number]-wrkubdx agents and dietary considerations. The patient was counseled on concern for caution with operating a motor vehicle while using opiate medications. A physical exam was performed and the patient's functional status was evaluated. All patients with back pain were advised against the bed rest greater than 4 days and were advised to return to normal activities. Pain score assessment was noted and the treatment plan was reviewed with the patient. All current medications, both prescribed and OTC were reviewed and reconciled on the electronic medical record. Tobacco screening was accomplished and smoking cessation was advised when indicated. BMI was noted and diet/exercise modification was recommended for all patients following outside normal parameters. I reviewed with the patient today their responsibilities to safeguard prescription medications, reviewed their responsibility to utilize medications only as prescribed by the physician. They are to seek and receive pain medications only from 1 physician group ([facility]). They are to use 1 pharmacy and keep the clinic informed if they change pharmacies. Their responsibilities include making followup visits in a timely fashion and to avoid abrupt discontinuation of medication usage. Their responsibilities further [address] [place] [address] PAIN MANAGEMENT CONSULTATION Name: GERARD PARDO Room #: REG [facility].#: [id number] Admission: 06/05/19 Attend Phys: Jennifer Lora Discharge: Date of : 50 Report #: [id number] include bringing their medications (bottles from the pharmacy with residual pills) to the visit for possible confirmation of pill counts and the patient understands it is their responsibility to submit to random drug screens to ensure both that the medications prescribed are present, and that no other controlled substances are present. All prescriptions provided today were generated electronically. PLAN: 1. We discussed treatment options with the patient today. The patient finds her medications very beneficial in reducing her overall pain. We will refill her OxyIR 10 mg, #90, for today and 4 weeks supply as well as her oxymorphone ER 10 mg, #60 and her tizanidine 4 mg, #90. The patient will return in 2 months for medication management. 2. We discussed the COVID virus and the possibility of decrease supply of medications in the future and I encouraged her if she is able to take less of her breakthrough medicine to have a small supply at home in case a supply chain is disrupted, the patient verbalizes understanding. She will try to do that on a less painful day. We are hopeful this not will be the case, so we would rather her plan and not go through significant withdrawal. 3. The patient is seen in collaboration with Dr. Braxton Jordan. <ELECTRONICALLY SIGNED> By: Jennifer Lora 06/06/19 1340 [id number] Jennifer Lora /nt
== END ==
LOC: PAIN 05-29 14:15
DX: M54.16 Radiculopathy, lumbar region (principal); Z86.11 Personal history of tuberculosis; Z87.19 Personal history of other diseases of the digestive system; Z87.39 Personal history of other diseases of the musculoskeletal system and connective tissue; Z88.1 Allergy status to other antibiotic agents; Z88.0 Allergy status to penicillin; Z91.040 Latex allergy status

== ENCOUNTER → 2019-07-31 | Outpatient (CLI) | payer OTHER ==
[~2019-07-31] VITALS: Ht 154.9 cm; Wt 95.6 kg
[2019-07-31 13:35] VITALS: BP 107/72
--- NOTE | 2019-07-31 13:46 | NUR ---
Pain Clinic Assessment: 1. History of Osteoarthritis: BACK History of Rheumatoid Arthritis: NONE 2. Height: 5 ft. 1 in. 154.9 cm. Weight: 210.8 lb. oz. 95.618 kg. Patient's BMI: 39.9 3. Vital Signs: BP: 107/72 Pulse: 93 Resp: 16 Temp: 02 Sat: 95 ECG Mon: 4. Pain Intensity: 5 5. Fall Risk: Dizziness: N Needs help standing or walking: N Fallen in the last 3 months: N Fall risk comments: 6. Patient on Blood Thinner: None 7. History of Hypertension: Y 8. Opioid Therapy greater than 6 weeks: Y Opiate Contract Signed: 04/14/17 9. Risk Assessment Tool Provided: 1-LOW 10. Functional Assessment Tool: 11. Recreational Drug Use: Never Drug Type: Tobacco Use: Never Smoker Tobacco Type: Amount or Packs/day: How Many Years: Alcohol Use: No Frequency: Quant:
--- NOTE | 2019-08-01 07:29 | HPC ---
[facility] [address] [place] [address] PAIN MANAGEMENT CONSULTATION Name: GERARD PARDO [id number] Admission: 07/31/19 Attend Phys: Jennifer Lora Discharge: Date of : 50 Report #: [id number] THIS REPORT FOR: cc: Stephanie Min. Stephanie Jay. Jennifer Haas ~ CC: Shirlene Jordan MD DATE OF SERVICE: 07/31/2019 CHIEF COMPLAINT: Chronic low back pain. HISTORY OF PRESENT ILLNESS: This is a very pleasant 68-year-old female who returns to the pain clinic today for refill of her opioid medications that she uses to help treat her ongoing low back pain. Today, she is reporting a pain score of 5/10 and is located in her lower back and sacrum area. Occasionally, it does radiate into her legs as well. She describes it as an aching, sharp, tender feeling, had a 5/10. It is worse with prolonged standing and walking or sitting too long. She feels that the car ride today did flare her pain. She feels that the medication as well as lying down has been beneficial. She denies any problems with constipation or daytime sleepiness. She reports that she has been staying home during this outbreak of COVID. This is one of her first outings since we saw her at her last appointment 2 months ago. She is wearing a mask today and is very fearful that she may contract the virus here at the clinic. ALLERGIES: VALIUM, PENICILLIN AND LATEX. PQRS: 1. She has osteoarthritis in her lumbar spine. Denies any rheumatoid arthritis. 2. Height is 5 feet 1 inch, Weight is 210 and BMI is 39. 3. Vital signs, blood pressure 107/72, pulse is 93, respirations 16, and oxygen sat is 95. 4. Pain score is 5/10. 5. Denies dizziness, does not need help walking or standing, has not fallen in the last 3 months. 6. The patient is not on any blood thinners, but does take medicine for hypertension. Opioid therapy is greater than 6 weeks. Risk assessment is low. Functional assessment is 57/70. 7. Recreational drug use, she denies, not a smoker and does not drink alcohol. The patient's prescription monitoring system was checked and she is filling appropriately for her medications. She is due to fill those later this week. According to the CDC guidelines, her morphine mEq is 105 MMEs [place] [address] PAIN MANAGEMENT CONSULTATION Name: GERARD PARDO [facility] [id number] Admission: 07/31/19 Attend Phys: Jennifer Lora Discharge: Date of : 50 Report #: [id number] seen every 2 months in the pain clinic. At her next visit, we will recheck a urine drug screen. PHYSICAL EXAMINATION: GENERAL: This is an alert and orientated, well-developed, well-nourished 68-year-old female who appears her stated age, placing her current pain score at 05/10 today. HEENT: Normocephalic, atraumatic. Extraocular eye muscles are intact. She is wearing a mask. NECK: She has tenderness in her neck that is increased with flexion and extension. MUSCULOSKELETAL: She is without significant scoliosis, kyphosis or lordosis. Pain radiates from her lumbosacral region into her bilateral legs. Her lower extremity strength judged to be 5/5 in all major muscle groups. She does walk with a slightly antalgic gait. IMPRESSION: 1. Lumbar radiculopathy with history of Henley rods and fusion. 2. History of tuberculosis. 3. History of anemia. 4. Complex medical management utilizing opioid medications. We reviewed the fact that opiate medications are being used to provide analgesia adequate to support activities of daily living, not attempting to achieve a specific pain score on the 0-10 Visual Analog Scale. The current opiate medications are providing sufficient analgesia to allow the patient to participate in activities of daily living. The patient is not exhibiting any aberrant behavior suggestive of drug diversion. The patient is not having any adverse reactions to medications. The patient is not suffering from daytime somnolence or mental acuity changes. The patient is managing opiate-induced constipation with appropriate cofm-hnb-wbcdhnw agents and dietary considerations. The patient was counseled on concern for caution with operating a motor vehicle while using opiate medications. PLAN: 1. We discussed treatment options with the patient today. The patient finds her medications are beneficial, though she feels that she had a recent flare due to riding in the car. Otherwise, she feels that they are very beneficial and would like refills today. We will have Dr. Braxton Jordan send these electronically for her oxycodone 10 mg, #90, for today and 4 weeks supply as well as her oxymorphone extended release 10 mg, #60 for today and 4-week release. I will send her tizanidine 4 mg, #90 with one additional refill as well. 2. The patient continues to stay at home during this COVID outbreak, wearing a mask to almost of her visit, and encouraged the patient to use good handwashing throughout this time. She states that she is not leaving the house except to come to doctors' appointments. [address] [address] PAIN MANAGEMENT CONSULTATION Name: CUTBIRTH,GERARD Bishop Room #: [facility] Joe#: [id number] Admission: 07/31/19 Attend Phys: Jennifer Lora Discharge: Date of : 50 Report #: [id number] 3. The patient is seen in collaboration with Dr. Braxton Jordan who did see the patient as well today. <ELECTRONICALLY SIGNED> By: Jennifer Lora 08/01/19 0729 [id number] Jennifer Lora /nt
== END ==
LOC: PAIN 07:06
DX: M54.16 Radiculopathy, lumbar region (principal); G89.29 Other chronic pain; Z79.899 Other long term (current) drug therapy; Z79.891 Long term (current) use of opiate analgesic

== ENCOUNTER → 2019-10-02 | Outpatient (CLI) | payer OTHER ==
[~2019-10-02] MED LIST changes: +ZANAFLEX4 M2 PO
--- NOTE | 2019-10-02 14:03 | NUR ---
Pain Clinic Assessment: 1. History of Osteoarthritis: BACK History of Rheumatoid Arthritis: NONE 2. Height: ft. in. cm. Weight: lb. oz. kg. Patient's BMI: 3. Vital Signs: BP: Pulse: Resp: Temp: 02 Sat: ECG Mon: 4. Pain Intensity: 3 5. Fall Risk: Dizziness: N Needs help standing or walking: N Fallen in the last 3 months: N Fall risk comments: 6. Patient on Blood Thinner: None 7. History of Hypertension: Y 8. Opioid Therapy greater than 6 weeks: Y Opiate Contract Signed: 04/14/17 9. Risk Assessment Tool Provided: 1-LOW 10. Functional Assessment Tool: 57/ 11. Recreational Drug Use: Never Drug Type: Tobacco Use: Never Smoker Tobacco Type: Amount or Packs/day: How Many Years: Alcohol Use: No Frequency: Quant:
--- NOTE | 2019-10-03 08:22 | HPC ---
[facility] [address] [place] [address] PAIN MANAGEMENT CONSULTATION Name: GERARD PARDO Room #: REG [facility].#: [id number] Admission: 10/02/19 Attend Phys: Jennifer Lora Discharge: Date of : 50 Report #: [id number] THIS REPORT FOR: cc: Stephanie Min. Stephanie Jay. Jennifer Haas ~ CC: Shirlene Jordan MD DATE OF SERVICE: 10/02/2019 CHIEF COMPLAINT: Chronic low back pain. HISTORY OF PRESENT ILLNESS: This is a 68-year-old female who returns to the pain clinic today for refill of her medications that she uses to help treat her ongoing low back pain and thoracic pain. She also reports pain in her bilateral legs, stating her right hip and leg are worse than her left. She feels that it is an aching, sharp pressure feeling that is occasionally sharp, rating her pain score today at 3/10. She feels that the medications control her pain very well as well as heat and ice. She states walking and standing do aggravate her. She denies problems with constipation or daytime sleepiness as a result of her medications. ALLERGIES: VALIUM, PENICILLIN AND LATEX. CURRENT LIST OF MEDICATIONS: Tizanidine 4 mg 3 times a day, oxymorphone ER 10 mg b.i.d., oxycodone IR 10 mg t.i.d., Abilify, Desyrel, paroxetine, albuterol, Singulair, Lunesta, gabapentin and Vistaril. PQRS: She has osteoarthritis in her back. Denies any rheumatoid arthritis. Height is 5 feet 1 inch, weight is 217. Vital signs 134/85, pulse is 100, respirations 20, oxygen sat is 94. Pain score is 3/10. Fall risk. Denies dizziness, does not need help walking or standing, has not fallen in the last 3 months. The patient is not on any blood thinners, but does have history of hypertension. Her opioid therapy is greater than 6 weeks; therefore, an opioid signed contract is on the chart. Risk assessment tool is low. Functional assessment is 57/70. Recreational drug use, she denies. She is not a smoker and does not drink alcohol. According to the prescription monitoring system, the patient is due to fill her medications next week, filling them in a timely fashion. Her morphine milliequivalent according to the CDC guidelines is 105. We will collect a random drug screen on this patient today. She states that her last dose this morning. PHYSICAL EXAMINATION: GENERAL: This is alert and orientated female who appears her stated age. She is well-developed, well-nourished. She has a slight tremor noted today stating [address] [address] PAIN MANAGEMENT CONSULTATION Name: GERARD PARDO Room #: REG [facility] Joe#: [id number] Admission: 10/02/19 Attend Phys: Jennifer Lora Discharge: Date of : 50 Report #: [id number] her pain score is 3/10. HEENT: Normocephalic, atraumatic. Extraocular eye muscles are intact. She is wearing a mask. EXTREMITIES: No edema, no cyanosis present. MUSCULOSKELETAL: Pain radiates in her thoracic region as well as in her lumbosacral spine that radiates into her bilateral legs, greater on the right. Ambulation increases her pain. She is without significant scoliosis, kyphosis or lordosis. Her lower extremity strength judged to be 5/5 in all major muscle groups. She does have a slight tremor noted in her bilateral hands today. IMPRESSION: 1. Lumbar radiculopathy with history of Henley rods and fusion. 2. History of tuberculosis. 3. History of anemia. 4. Complex medical management utilizing scheduled medications. We reviewed the fact that opiate medications are being used to provide analgesia adequate to support activities of daily living, not attempting to achieve a specific pain score on the 0-10 Visual Analog Scale. The current opiate medications are providing sufficient analgesia to allow the patient to participate in activities of daily living. The patient is not exhibiting any aberrant behavior suggestive of drug diversion. The patient is not having any adverse reactions to medications. The patient is not suffering from daytime somnolence or mental acuity changes. The patient is managing opiate-induced constipation with appropriate [id number] agents and dietary considerations. The patient was counseled on concern for caution with operating a motor vehicle while using opiate medications. A physical exam was performed and the patient's functional status was evaluated. All patients with back pain were advised against the bed rest greater than 4 days and were advised to return to normal activities. Pain score assessment was noted and the treatment plan was reviewed with the patient. All current medications, both prescribed and OTC were reviewed and reconciled on the electronic medical record. Tobacco screening was accomplished and smoking cessation was advised when indicated. BMI was noted and diet/exercise modification was recommended for all patients following outside normal parameters. I reviewed with the patient today their responsibilities to safeguard prescription medications, reviewed their responsibility to utilize medications only as prescribed by the physician. They are to seek and receive pain medications only from 1 physician group ([facility]). They are to use 1 pharmacy and keep the clinic informed if they change pharmacies. Their responsibilities include making followup visits in a timely fashion and to avoid abrupt discontinuation of medication usage. Their responsibilities further include bringing their medications (bottles from the pharmacy with residual [facility] [address] [place] [address] PAIN MANAGEMENT CONSULTATION Name: GERARD PARDO Room #: REG [facility].#: [id number] Admission: 10/02/19 Attend Phys: Jennifer Lora Discharge: Date of : 50 Report #: [id number] pills) to the visit for possible confirmation of pill counts and the patient understands it is their responsibility to submit to random drug screens to ensure both that the medications prescribed are present, and that no other controlled substances are present. All prescriptions provided today were generated electronically. PLAN: 1. We discussed treatment options with the patient today. The patient finds her medicines very beneficial and would like refills. We will have Dr. Shen Jordan send her oxymorphone extended release 10 mg b.i.d., #60 for today and 4-week release and her OxyIR 10 mg t.i.d., #90 for today and 4-week release. 2. I will send her tizanidine 4 mg t.i.d., #90 with one additional refill to her pharmacy. 3. We will collect a random drug screen on this patient as well today. The patient is slightly jittery. She reports that she has drunk too much caffeine. We did collect a very concentrated small amount of urine for her drug screen. 4. The patient is seen in collaboration with Dr. Braxton Jordan. <ELECTRONICALLY SIGNED> By: Jennifer Lora 10/03/19 08 [id number] Jennifer Lora /nt
== END ==
LOC: PAIN 07:12
PROVIDERS: ATTEND Clinical Nurse Specialist Adult Health
DX: M54.16 Radiculopathy, lumbar region (principal); Z98.1 Arthrodesis status; Z86.11 Personal history of tuberculosis; Z86.2 Personal history of diseases of the blood and blood-forming organs and certain disorders involving the immune mechanism; Z88.8 Allergy status to other drugs, medicaments and biological substances; Z79.899 Other long term (current) drug therapy

== ENCOUNTER → 2019-11-29 | Outpatient (CLI) | payer OTHER ==
[~2019-11-29] VITALS: Ht 154.9 cm; Wt 102.3 kg
[2019-11-29 10:38] VITALS: BP 130/56
--- NOTE | 2019-11-29 10:51 | NUR ---
Pain Clinic Assessment: 1. History of Osteoarthritis: BACK History of Rheumatoid Arthritis: NONE 2. Height: 5 ft. 1 in. 154.9 cm. Weight: 225.6 lb. oz. 102.332 kg. Patient's BMI: 42.6 3. Vital Signs: BP: 130/56 Pulse: 77 Resp: 16 Temp: 02 Sat: 98 ECG Mon: 4. Pain Intensity: 2-3 5. Fall Risk: Dizziness: N Needs help standing or walking: N Fallen in the last 3 months: N Fall risk comments: 6. Patient on Blood Thinner: None 7. History of Hypertension: Y 8. Opioid Therapy greater than 6 weeks: Y Opiate Contract Signed: 04/14/17 9. Risk Assessment Tool Provided: 1-LOW 10. Functional Assessment Tool: 11. Recreational Drug Use: Never Drug Type: Tobacco Use: Never Smoker Tobacco Type: Amount or Packs/day: How Many Years: Alcohol Use: No Frequency: Quant:
--- NOTE | 2019-12-10 13:35 | HPC ---
[facility] [address] [address] PAIN MANAGEMENT CONSULTATION Name: GERARD PARDO Room #: REG [facility].#: [id number] Admission: 11/29/19 Attend Phys: Tucker Jordan MD Discharge: Date of : 50 Report #: [id number] THIS REPORT FOR: cc: Stephanie Min. Stephanie Jay. Tucker Olivas MD ~ CC: Leila. Pako Jordan DATE OF SERVICE: 11/29/2019 CHIEF COMPLAINT: "Medications are still helpful. I am not having any problems." HISTORY: The patient is a 69-year-old female who has been followed in the Pain Clinic. She continues to have back pain. In the past, she underwent back surgery because of lumbar pain. 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 She feels her medications continue to be helpful. She has not had any complications. She has taken the medication as prescribed. Notes that there is some pain in the neck area as well as pain down in the area of coccyx. She feels her medications have been working well. She would like to have them renewed today. Notes that pain is somewhat sharp, aching with tenderness, soreness and pressure. Rates the pain as a 2-3 today. Prolonged standing, walking or sitting for too long can exacerbate her discomfort. She has returned today for renewal of her medications. ALLERGIES: DYES, LATEX, MORPHINE, VALIUM, PENICILLIN, AND BARBITURATES. CURRENT MEDICATIONS: Estrace 0.25 mg, tizanidine 4 mg t.i.d., hydrochlorothiazide 25 mg, oxycodone immediate release 15 mg, omeprazole b.i.d., gabapentin 300 mg t.i.d., and oxymorphone 10 mg b.i.d. PAIN CLINIC ASSESSMENT AND PQRS: 1. The patient has some changes in her back. She has undergone back surgery. She is not being treated for rheumatoid arthritis. 2. Height 5 feet 1 inch, weight 225 pounds, BMI is 42. 3. Vital signs: Blood pressure 130/56, pulse 77, respiratory rate 16, and room air saturation 98%. 4. Pain intensity 2-3/10. 5. Fall history: The patient has not fallen in the last 3 months. 6. Blood thinner. The patient is not on a blood thinning medication. 7. Hypertension. The patient admits to being treated for hypertension. 8. Opioids greater than 6 weeks. The patient received medication from the Pain Clinic. 9. Risk assessment tool, low for opioid use. 10. Functional assessment tool 57/70. [place] [address] PAIN MANAGEMENT CONSULTATION Name: GERARD PARDO [facility] [id number] Admission: 11/29/19 Attend Phys: Tucker Jordan MD Discharge: Date of : 50 Report #: [id number] 11. Recreational drug use. The patient denies. 12. Tobacco: The patient has never smoked. 13. Alcohol. The patient denies use of alcoholic beverages. PHYSICAL EXAMINATION: GENERAL: The patient is a well-developed, well-nourished white female. Appears her stated age. She is alert and oriented x 3. Her affect is appropriate. Speech is fluent. HEENT: Normocephalic, atraumatic. Extraocular eye muscles intact. Sclerae nonicteric. Mucous membranes are moist. The patient has some pain and discomfort in her neck. Also complains of pain in the lower portion of her back. She has some discomfort in the thoracic area. MUSCULOSKELETAL: The patient is without significant scoliosis, kyphosis or lordosis. EXTREMITIES: Upper extremity muscle strength judged to be 5/5 for the major muscle groups in the upper extremity. Lower extremity muscle strength is judged to be 5-/5 for the major muscle groups in the lower extremity. The patient has some discomfort in her hands and has tremors bilaterally. IMPRESSION: 1. Lumbar radiculopathy with history of Henley rods and fusion of the lumbar spine. 2. Complex medical management using opioids to help control pain. 3. History of tuberculosis. 4. Anemia. 5. Renal stones. 6. Hepatitis. 7. History of liver disease. 8. Tremulousness in hands. 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 At this juncture, we will continue with her medications. She feels medications continue to be helpful. She has taken the medication as prescribed. Keeps her medications in a guarded area. She is aware that certain people have had problems with opioid medications and became addicted. She is aware that some patients have as a result of overdosing. She keeps her medications in a guarded area. She feels the medications are helpful and enable her to have a life with the least amount of pain and most productive. We would like to thank you for letting us participate in her care. A script for her medications of, tizanidine 4 mg 1 p.o. t.i.d. has been provided. The patient will also continue with oxycodone 10 mg 1 p.o. t.i.d. She has been given a script for oxymorphone 10 mg b.i.d. She will call for concerns. [address] [address] PAIN MANAGEMENT CONSULTATION Name: CUTBIRTH,GERARD L Room #: [facility].#: [id number] Admission: 11/29/19 Attend Phys: Tucker Jordan MD Discharge: Date of : 50 Report #: [id number] We would like to thank you for letting us participate in her care. We hope she continues to improve. <ELECTRONICALLY SIGNED> By: Tucker Jordan MD 12/10/19 [id number] Tucker Jordan MD /nt
== END ==
LOC: PAIN 06:53
PROVIDERS: ATTEND Anesthesiology Pain Medicine
DX: M54.16 Radiculopathy, lumbar region (principal); D64.9 Anemia, unspecified; N20.0 Calculus of kidney; K75.9 Inflammatory liver disease, unspecified; M25.842 Other specified joint disorders, left hand; M25.841 Other specified joint disorders, right hand; I10 Essential (primary) hypertension; Z98.1 Arthrodesis status; Z68.42 Body mass index [BMI] 45.0-49.9, adult; Z88.8 Allergy status to other drugs, medicaments and biological substances; Z79.891 Long term (current) use of opiate analgesic; Z79.899 Other long term (current) drug therapy

== ENCOUNTER → 2020-01-31 | Outpatient (CLI) | payer OTHER ==
[~2020-01-31] VITALS: Ht 154.9 cm; Wt 100.2 kg
[~2020-01-31] MED LIST changes: +WELLBUTRIN XL150 MG PO
[2020-01-31 09:19] VITALS: BP 147/80
--- NOTE | 2020-01-31 09:24 | NUR ---
Pain Clinic Assessment: 1. History of Osteoarthritis: BACK History of Rheumatoid Arthritis: NONE 2. Height: 5 ft. 1 in. 154.9 cm. Weight: 221.0 lb. oz. 100.245 kg. Patient's BMI: 41.8 3. Vital Signs: BP: 147/80 Pulse: 75 Resp: 16 Temp: 02 Sat: 95 ECG Mon: 4. Pain Intensity: 3 5. Fall Risk: Dizziness: N Needs help standing or walking: N Fallen in the last 3 months: N Fall risk comments: 6. Patient on Blood Thinner: None 7. History of Hypertension: Y 8. Opioid Therapy greater than 6 weeks: Y Opiate Contract Signed: 04/14/17 9. Risk Assessment Tool Provided: 1-LOW 10. Functional Assessment Tool: 11. Recreational Drug Use: Never Drug Type: Tobacco Use: Never Smoker Tobacco Type: Amount or Packs/day: How Many Years: Alcohol Use: No Frequency: Quant:
--- NOTE | 2020-02-03 15:56 | HPC ---
[facility] [address] [place] [address] PAIN MANAGEMENT CONSULTATION Name: GERARD PARDO Room #: REG [facility].#: [id number] Admission: 01/31/20 Attend Phys: Jennifer Lora Discharge: Date of : 50 Report #: [id number] THIS REPORT FOR: cc: Stephanie Min. Stephanie Jay. Jennifer Haas ~ CC: Jennifer Jordan MD DATE OF SERVICE: 01/31/2020 CHIEF COMPLAINT: Lumbar radiculopathy. HISTORY OF PRESENT ILLNESS: This is a 69-year-old female who is well known to the pain clinic and returning today for a refill of her opioid medications. Today, she is reporting a pain score of 3/10, most significantly her pain is in her mid back, though she does continue to have neck and bilateral hip and leg pain. She has had previous back surgery and has had ongoing pain issues. The patient does state that her pain score is 3/10. It is a constant aching pain, worse with standing and walking. She does try to be active around the house and is thankful for her opioid medications. She denies any significant problems with constipation or daytime somnolence. The patient reports she has not had COVID. They are trying to stay safe at home, mostly staying at home with her and she has had the flu vaccination. ALLERGIES: DIAZEPAM, PENICILLIN AND LATEX. CURRENT LIST OF MEDICATIONS: Wellbutrin, Zanaflex, oxymorphone 10 mg b.i.d., OxyIR 10 mg t.i.d., Abilify, paroxetine, Singulair, eszopiclone, Vistaril p.r.n. and gabapentin. PQRS: 1. The patient has arthritic changes in her back and is not being treated for rheumatoid arthritis. 2. Height is 5 feet 1 inch, weight is 221. BMI is 41. 3. Vital signs 147/80, pulse is 75, respirations 16, oxygen sat is 95%. 4. Pain score is 3/10. 5. Denies dizziness, does not need help walking or standing, has not fallen in the last 3 months. 6. The patient is not on any blood thinners, but does have a history of hypertension. 7. Opioid therapy is greater than 6 weeks; therefore, an opioid signed contract is on the chart. Risk assessment is low. Functional assessment 60/70[place] [address] PAIN MANAGEMENT CONSULTATION Name: GERARD PARDO Room #: REG [facility] Tatyana#: [id number] Admission: 01/31/20 Attend Phys: Jennifer Lora Discharge: Date of : 50 Report #: [id number] 8. Recreational drug use, she denies. She is not a smoker and does not drink alcohol. According to the prescription monitoring system, the patient is filling appropriately in a timely fashion. She is due to fill her medications today or tomorrow. Her morphine mEq is 105. We do follow her on a bimonthly visits since she is on the slightly high end of the opioid conversion factor. There is a drug screen on the chart that is appropriate for her medications. PHYSICAL EXAMINATION: GENERAL: This is a well-developed, well-nourished, well-hydrated 69-year-old female who appears her stated age. She is answering my questions appropriately and her speech is fluent, rating a pain score at 3/10. HEENT: Normocephalic, atraumatic. Extraocular eye muscles are intact. Mucous membranes are moist. She is wearing a mask. MUSCULOSKELETAL: She has pain in the lower portion of her back and in the thoracic area. Pain radiates into her hips bilaterally. Her upper and lower extremity strength is judged to be 5/5 with all major muscle groups. The patient does have a normal gait. She is without significant scoliosis, kyphosis or lordosis. IMPRESSION: 1. Lumbar radiculopathy with history of Henley rods and fusion. 2. History of tuberculosis. 3. Hepatitis. 4. Complex medical management utilizing opioid medications. 5. Tremulousness in hands bilaterally. We reviewed the fact that opiate medications are being used to provide analgesia adequate to support activities of daily living, not attempting to achieve a specific pain score on the 0-10 Visual Analog Scale. The current opiate medications are providing sufficient analgesia to allow the patient to participate in activities of daily living. The patient is not exhibiting any aberrant behavior suggestive of drug diversion. The patient is not having any adverse reactions to medications. The patient is not suffering from daytime somnolence or mental acuity changes. The patient is managing opiate-induced constipation with appropriate yvad-san-kyqmgpc agents and dietary considerations. The patient was counseled on concern for caution with operating a motor vehicle while using opiate medications. PLAN: 1. We discussed treatment options with the patient today. Overall, she feels the medications are very beneficial in allowing her to be as active as she would like at home with very minimal side effects. We will have Dr. Jordan continue her oxycodone IR 10 mg, #90, for today and 4-week supply and her oxymorphone extended release 10 mg b.i.d. Scripts were written for today and 4-week supply [address] [address] PAIN MANAGEMENT CONSULTATION Name: GERARD PARDO [id number] Admission: 01/31/20 Attend Phys: Jennifer Lora Discharge: Date of : 50 Report #: [id number] of these medications and given to the patient. 2. According to the records, she does not need refill of tizanidine at this time. 3. The patient will return in 2 months for followup. The patient is seen today in collaboration with Dr. Jordan who did see the patient as well. <ELECTRONICALLY SIGNED> By: Jennifer Lora 02/03/20 [id number] Jennifer Lora /nt
== END ==
LOC: PAIN 06:57
PROVIDERS: ATTEND Clinical Nurse Specialist Adult Health
DX: M54.16 Radiculopathy, lumbar region (principal); Z79.891 Long term (current) use of opiate analgesic; Z79.899 Other long term (current) drug therapy; Z88.5 Allergy status to narcotic agent

== ENCOUNTER → 2020-04-01 | Outpatient (CLI) | payer OTHER ==
[~2020-04-01] VITALS: Ht 152.4 cm; Wt 99.2 kg
[2020-04-01 12:26] VITALS: BP 132/78
--- NOTE | 2020-04-01 12:34 | NUR ---
Pain Clinic Assessment: 1. History of Osteoarthritis: BACK History of Rheumatoid Arthritis: NONE 2. Height: 5 ft. 1 in. 152.4 cm. Weight: 218.6 lb. oz. 99.156 kg. Patient's BMI: 42.7 3. Vital Signs: BP: 132/78 Pulse: 100 Resp: 16 Temp: 02 Sat: 96 ECG Mon: 4. Pain Intensity: 3 5. Fall Risk: Dizziness: N Needs help standing or walking: N Fallen in the last 3 months: N Fall risk comments: 6. Patient on Blood Thinner: None 7. History of Hypertension: Y 8. Opioid Therapy greater than 6 weeks: Y Opiate Contract Signed: 04/14/17 9. Risk Assessment Tool Provided: 1-LOW 10. Functional Assessment Tool: 11. Recreational Drug Use: Never Drug Type: Tobacco Use: Never Smoker Tobacco Type: Amount or Packs/day: How Many Years: Alcohol Use: No Frequency: Quant:
--- NOTE | 2020-04-01 15:41 | HPC ---
[facility] [address] [place] [address] PAIN MANAGEMENT CONSULTATION Name: GERARD PARDO Room #: REG [facility]..#: [id number] Admission: 04/01/20 Attend Phys: Jennifer Lora Discharge: Date of : 50 Report #: [id number] THIS REPORT FOR: cc: Stephanie Min. Stephanie Jay. Jennifer Haas ~ DATE OF SERVICE: 04/01/2020 CHIEF COMPLAINT: Lumbar radiculopathy and low back pain. HISTORY OF PRESENT ILLNESS: This is a pleasant 69-year-old female who returns to the pain clinic today for renewal of her opioid medications. Today, she is reporting a pain score of 3/10, most significantly in her low back that radiates into her hips. She also has ongoing midback and cervical issues. She reports her pain as an aching, cramping sensation that is occasionally sharp, especially with walking, standing or prolonged sitting. Overall, she believes she is doing quite well on her current regimen and would like refills of her oxymorphone and oxycodone. She denies any daytime somnolence or constipation as a result of her opioid medications. ALLERGIES: VALIUM, PENICILLIN, LATEX. CURRENT LIST OF MEDICATIONS: Tizanidine 4 mg t.i.d., oxymorphone 10 mg b.i.d., oxycodone IR 10 mg t.i.d. p.r.n., bupropion, Ventolin, Singulair, Lunesta, hydralazine p.r.n., gabapentin. PQRS: 1. She has osteoarthritic changes in her back. She is not being treated for rheumatoid arthritis. 2. Height is 5 feet 1 inch, weight is 218, BMI is 42. 3. Vital signs; blood pressure 132/78, pulse is 100, respirations 16, oxygen sat is 96%. 4. Pain score is 3/10. 5. Denies dizziness, does not need help walking or standing, has not fallen in the last 3 months. 6. The patient is not on any blood thinners, but does take medicine for hypertension. 7. Opiate therapy is greater than 6 weeks; therefore, an opioid signed contract is on the chart. Risk assessment is low. Functional assessment 60/70. 8. Recreational drug use, she denies. She is not a smoker and does not drink alcohol. According to the prescription monitoring system, she is filling appropriately and due to fill today. Her morphine mEq is quite high at 112, but she has been stable on these medications. We do see her every 2 months and there is a urine drug screen on the chart that is appropriate for her medications. [address] [address] PAIN MANAGEMENT CONSULTATION Name: GERARD PARDO Room #: REG [facility] Joe#: [id number] Admission: 04/01/20 Attend Phys: Jennifer Lora Discharge: Date of : 50 Report #: [id number] PHYSICAL EXAMINATION: GENERAL: This is a well-developed, well-nourished 69-year-old female who is morbidly obese, placing her current pain score at 3/10. Her speech is fluent and she is a good historian. HEENT: Normocephalic and atraumatic. Extraocular eye muscles are intact. She is wearing a mask. MUSCULOSKELETAL: She has discomfort and tenderness in the mid thoracic region as well as her lumbar spine. Pain does radiate into her hips bilaterally. She is without significant scoliosis, kyphosis or lordosis. She has a normal gait. Her lower extremity strength are symmetrical at 5/5 with good sensation from L1-S2. IMPRESSION: 1. Lumbar radiculopathy with history of Henley rods and fusion. 2. Hepatitis. 3. Complex medical management utilizing scheduled opioid medications. We reviewed the fact that opiate medications are being used to provide analgesia adequate to support activities of daily living, not attempting to achieve a specific pain score on the 0-10 Visual Analog Scale. The current opiate medications are providing sufficient analgesia to allow the patient to participate in activities of daily living. The patient is not exhibiting any aberrant behavior suggestive of drug diversion. The patient is not having any adverse reactions to medications. The patient is not suffering from daytime somnolence or mental acuity changes. The patient is managing opiate-induced constipation with appropriate nyuo-onr-zhiqhvb agents and dietary considerations. The patient was counseled on concern for caution with operating a motor vehicle while using opiate medications. PLAN: 1. We discussed treatment options with the patient today. Overall, she believes the medication is very beneficial allowing her to be as active as she would like with overall good pain control. We will continue her on her oxymorphone 10 mg b.i.d., #60 sent for today and 4-week supply as well as OxyIR 10 mg t.i.d., #90 for her breakthrough pain, sent today and 4-week supply by Dr. Braxton Jordan. 2. We did discuss the COVID vaccine. Unfortunately, her Health Department has not vaccinating people under 70 currently in her county. She continues to check with them and plan to have the COVID vaccine as soon as available to them. The patient is seen in collaboration with Dr. Jordan. The patient will return in 2 months. <ELECTRONICALLY SIGNED> By: Jennifer Lora 04/01/20 [id number] [id number] Jennifer Lora /nt
== END ==
LOC: PAIN 06:45
PROVIDERS: ATTEND Clinical Nurse Specialist Adult Health
DX: M54.16 Radiculopathy, lumbar region (principal); K75.9 Inflammatory liver disease, unspecified; Z79.891 Long term (current) use of opiate analgesic; Z79.899 Other long term (current) drug therapy; Z88.0 Allergy status to penicillin; Z88.8 Allergy status to other drugs, medicaments and biological substances; Z91.040 Latex allergy status

== ENCOUNTER → 2020-05-27 | Outpatient (CLI) | payer OTHER ==
[~2020-05-27] VITALS: Ht 154.9 cm; Wt 95.7 kg
[2020-05-27 12:32] VITALS: BP 113/53
--- NOTE | 2020-05-27 12:35 | NUR ---
Pain Clinic Assessment: 1. History of Osteoarthritis: BACK History of Rheumatoid Arthritis: NONE 2. Height: 5 ft. 1 in. 154.9 cm. Weight: 211.0 lb. oz. 95.709 kg. Patient's BMI: 39.9 3. Vital Signs: BP: 113/53 Pulse: 96 Resp: 16 Temp: 02 Sat: 97 ECG Mon: 4. Pain Intensity: 3 5. Fall Risk: Dizziness: N Needs help standing or walking: N Fallen in the last 3 months: N Fall risk comments: 6. Patient on Blood Thinner: None 7. History of Hypertension: Y 8. Opioid Therapy greater than 6 weeks: Y Opiate Contract Signed: 04/14/17 9. Risk Assessment Tool Provided: 1-LOW 10. Functional Assessment Tool: 11. Recreational Drug Use: Never Drug Type: Tobacco Use: Never Smoker Tobacco Type: Amount or Packs/day: How Many Years: Alcohol Use: No Frequency: Quant:
--- NOTE | 2020-05-28 07:34 | HPC ---
[facility] [address] [address] PAIN MANAGEMENT CONSULTATION Name: GERARD PARDO Room #: REG [facility].#: [id number] Admission: 05/27/20 Attend Phys: Jennifer Lora Discharge: Date of : 50 Report #: [id number] THIS REPORT FOR: cc: Stephanie Min. Stephanie Jay. Jennifer Haas ~ DATE OF SERVICE: 05/27/2020 CHIEF COMPLAINT: Lumbar radiculopathy and low back pain. HISTORY OF PRESENT ILLNESS: This is a 69-year-old female who I am speaking with in the pain clinic today for renewal of her opioid medications. Today, she is reporting her pain score at 3/10. She believes it is well managed with her oxymorphone and oxycodone. Her pain is most intense today in her mid back, though she does occasionally have low back pain that radiates into her hips as well as occasional neck discomfort. She describes her pain as an aching, sharp, cramping sensation that is worse with prolonged standing and walking or riding in the car and sitting too long. Overall, the medications are beneficial as well as heat or ice. She denies constipation issues that are not relieved by wzhy-ecb-hgcsiah medications. Today, patient was reporting she has had her first COVID vaccine and will have her second one later this month. She states her arm was slightly sore for a couple of days, but no further issues from the vaccine. ALLERGIES: VALIUM, PENICILLIN AND LATEX. CURRENT LIST OF MEDICATIONS: Oxymorphone 10 mg b.i.d., OxyIR 10 mg t.i.d. p.r.n., tizanidine, buspirone, Ventolin, Singulair, Lunesta, Vistaril, gabapentin. PQRS: She has arthritic changes in her back. She is not being treated for any rheumatoid arthritis. Height is 5 feet 1, weight is 211, BMI is 39. Vital signs 113/53, pulse is 96, respirations 16, oxygen sat is 97%. Pain score is 3/10. Fall Risk: Denies dizziness, does not need help walking or standing, has not fallen in the last 3 months. The patient is not on any blood thinners, but does take medicine for hypertension. Her opioid therapy is greater than 6 weeks; therefore, an opioid signed contract is on the chart. Risk assessment is low. Functional assessment 60/70. Recreational drug use, she denies. She is not a smoker and does not drink alcohol. According to the prescription monitoring system, she is due to fill her medications today. Her morphine mEq is 105. She is followed every 2 months in our pain clinic and has a recent drug screen on the chart that is appropriate for her medications. [address] [address] PAIN MANAGEMENT CONSULTATION Name: GERARD PARDO [id number] Admission: 05/27/20 Attend Phys: Jennifer Lora Discharge: Date of : 50 Report #: [id number] PHYSICAL EXAMINATION: GENERAL: This is alert and orientated, obese 69-year-old female who appears her stated age, rating her pain score today at 3/10. She is a good historian. HEENT: Normocephalic, atraumatic. Extraocular eye muscles are intact. She is wearing a mask. MUSCULOSKELETAL: She has discomfort in her lower back as well as her mid back. Pain radiates into her hips bilaterally. She is without significant scoliosis, kyphosis or lordosis. Her upper and lower extremity strength is symmetrical. The patient does have some tremors in her hands bilaterally. IMPRESSION: 1. Lumbar radiculopathy, with history of Henley rods and fusion. 2. History of tuberculosis. 3. Hepatitis. 4. Tremulous in hands. 5. Complex medical management utilizing scheduled opioid medications. PLAN: 1. We discussed treatment options with the patient today. The patient finds her medications very beneficial in controlling significant portion of her pain and would like to continue at her current dose. We will have Dr. Braxton Jordan send her oxycodone 10 mg, #90 as well as oxymorphone ER 10 mg tablets, #60 to her pharmacy for today and again in 4-week release. 2. I did send her tizanidine 4 mg tablets, she takes this muscle relaxant 3 times a day. Scripts sent for #90 with 5 refills for a total of 6-month supply. 3. The patient has recently had her first COVID vaccine. Her arm was slightly sore. I encouraged with the second dose to utilize heat and ice to her arm and Tylenol if needed. Time spent with the patient in consultation, reviewing imaging, studies, clinical notes and physician reports, physical examination in correlation of physical findings and medical documentation to determine treatments, 12 minutes. Time spent in preparation for appointment, review of prescription monitoring report, reviewing previous records and treatment options and current medications, 5 minutes. Time spent preparing and sending electronic prescriptions with collaborating physician, Dr. Jordan and documentation of visit and plan of treatment, 8 minutes. Total time spent 25 minutes. <ELECTRONICALLY SIGNED> By: Jennifer Lora 05/28/20 0734 [id number] Jennifer monroe
== END ==
LOC: PAIN 06:46
PROVIDERS: ATTEND Clinical Nurse Specialist Adult Health
DX: M54.16 Radiculopathy, lumbar region (principal); Z79.891 Long term (current) use of opiate analgesic; Z79.899 Other long term (current) drug therapy

== ENCOUNTER → 2020-07-22 | Outpatient (CLI) | payer OTHER ==
[~2020-07-22] VITALS: Ht 154.9 cm; Wt 96.2 kg
[2020-07-22 12:41] VITALS: BP 151/79
--- NOTE | 2020-07-22 12:43 | NUR ---
Pain Clinic Assessment: 1. History of Osteoarthritis: BACK History of Rheumatoid Arthritis: NONE 2. Height: 5 ft. 1 in. 154.9 cm. Weight: 212.0 lb. oz. 96.163 kg. Patient's BMI: 40.1 3. Vital Signs: BP: 151/79 Pulse: 88 Resp: 16 Temp: 02 Sat: 96 ECG Mon: 4. Pain Intensity: 3 5. Fall Risk: Dizziness: N Needs help standing or walking: N Fallen in the last 3 months: N Fall risk comments: 6. Patient on Blood Thinner: None 7. History of Hypertension: Y 8. Opioid Therapy greater than 6 weeks: Y Opiate Contract Signed: 04/14/17 9. Risk Assessment Tool Provided: 1-LOW 10. Functional Assessment Tool: 11. Recreational Drug Use: Never Drug Type: Tobacco Use: Never Smoker Tobacco Type: Amount or Packs/day: How Many Years: Alcohol Use: No Frequency: Quant:
--- NOTE | 2020-07-23 15:22 | HPC ---
[facility] [address] [address] PAIN MANAGEMENT CONSULTATION Name: GERARD PARDO Room #: REG [facility].#: [id number] Admission: 07/22/20 Attend Phys: Jennifer Lora Discharge: Date of : 50 Report #: [id number] THIS REPORT FOR: cc: Stephanie Min. Stephanie Jay. Jennifer Haas ~ DOC #: [id number] cc: Shirlene Jordan MD DATE OF SERVICE: 07/22/2020 CHIEF COMPLAINT: Lumbar radiculopathy and low back pain. HISTORY OF PRESENT ILLNESS: As you are aware, this is a 69-year-old female who returns to the pain clinic today for renewal of her opioid medications. She has longstanding low back pain and chronic neck pain as well as hip pain as a result of a work comp injury in 2001 that she continues to utilize opioids for this injury. Today, she is reporting a pain score of 3/10. She believes the oxymorphone as well as the oxycodone IR is very beneficial in decreasing her pain. She describes her pain as a constant aching, occasionally sharp pain that is worse with walking, standing or sitting too long. The medication as well as lying down or alternating heat and ice when she has flares have been beneficial. She is not complaining of any daytime somnolence or constipation issues as a result of her opioid medications. We received a letter from [employer] workmen's compensation requesting hospital records. According to the patient, [employer] is her pharmacy work comp company that continues to provide her medications. I did explain to the patient that we have done a prior authorization through [employer], which is her medical insurance and they have been covering her medications. I encouraged the patient to notify her pharmacy that [employer] should be paying for her prescription medications according to the patient. I did provide her with a letter with claims adjusters name. We will no longer be doing any prior authorizations on her medications as that is the work [employer] companies responsibility. ALLERGIES: DIAZEPAM, PENICILLIN AND LATEX. MEDICATIONS: Current list of medications oxymorphone 10 mg q. 12 hours, OxyIR t.i.d., tizanidine, bupropion, Ventolin, Singulair, Lunesta, Vistaril, Neurontin. PQRS: 1. She has osteoarthritic issues in her back. Denies any rheumatoid arthritis. 2. Height is 5 feet 1 inch, weight is 212, and BMI is 40. 3. Vital signs, blood pressure 151/79, pulse is 88, respirations 16, oxygen sat [address] [address] PAIN MANAGEMENT CONSULTATION Name: GERARD PARDO Room #: REG [facility] Joe#: [id number] Admission: 07/22/20 Attend Phys: Jennifer Lora Discharge: Date of : 50 Report #: [id number] is 96%. 4. Pain score is 3/10. 5. Denies dizziness, does not need help walking or standing, has not fallen in the last 3 months. 6. The patient is not on any blood thinners, but does take medicine for hypertension. 7. Opioid therapy is greater than six weeks; therefore, an opioid signed contract is on the chart. Risk assessment is low. Functional assessment 60-70. 8. Recreational drug use, she denies. She is not a smoker, does not drink alcohol. According to the prescription monitoring system, the patient is filling appropriately for her medications. She is due to fill her medications this week. Her morphine mEq is 100 MME and is followed quite closely by our clinic. Seen every 2 months. We did check a random drug screen on her recently and it was appropriate for her medications. We will check this again in 3 months. PHYSICAL EXAMINATION: GENERAL: This is alert and orientated well-developed, well-nourished 69-year-old female who appears her stated age, placing her current pain score today at 3/10. She is a good historian. HEENT: Normocephalic, atraumatic. Extraocular eye muscles are intact. She is wearing a mask. MUSCULOSKELETAL: She has discomfort in the lumbosacral region of her back that radiates into her hips bilaterally. Also, has ongoing cervical issues with no radicular symptoms present today. She is without significant scoliosis, kyphosis, or lordosis. She has well-healed approximate scar in her lumbar spine. Her upper and lower extremity strength is symmetrical at 5/5. IMPRESSION: 1. Lumbar radiculopathy with a history of Henley rods and fusion. 2. History of tuberculosis. 3. History of hepatitis. 4. Complex medical management utilizing scheduled opioid medications. 5. Chronic neck pain. We reviewed the fact that opiate medications are being used to provide analgesia adequate to support activities of daily living, not attempting to achieve a specific pain score on the 0-10 Visual Analog Scale. The current opiate medications are providing sufficient analgesia to allow the patient to participate in activities of daily living. The patient is not exhibiting any aberrant behavior suggestive of drug diversion. The patient is not having any adverse reactions to medications. The patient is not suffering from daytime somnolence or mental acuity changes. The patient is managing opiate-induced constipation with appropriate stsg-rxi-ksacgrs agents and dietary considerations. The patient was counseled on concern for caution with operating [facility] [address] [place] [address] PAIN MANAGEMENT CONSULTATION Name: GERARD PARDO Room #: REG [facility].#: [id number] Admission: 07/22/20 Attend Phys: Jennifer YANETH Lora Discharge: Date of : 50 Report #: [id number] a motor vehicle while using opiate medications. A physical exam was performed and the patient's functional status was evaluated. All patients with back pain were advised against the bed rest greater than 4 days and were advised to return to normal activities. Pain score assessment was noted and the treatment plan was reviewed with the patient. All current medications, both prescribed and OTC were reviewed and reconciled on the electronic medical record. Tobacco screening was accomplished and smoking cessation was advised when indicated. BMI was noted and diet/exercise modification was recommended for all patients following outside normal parameters. I reviewed with the patient today their responsibilities to safeguard prescription medications, reviewed their responsibility to utilize medications only as prescribed by the physician. They are to seek and receive pain medications only from 1 physician group ( [facility]). They are to use 1 pharmacy and keep the clinic informed if they change pharmacies. Their responsibilities include making followup visits in a timely fashion and to avoid abrupt discontinuation of medication usage. Their responsibilities further include bringing their medications (bottles from the pharmacy with residual pills) to the visit for possible confirmation of pill counts and the patient understands it is their responsibility to submit to random drug screens to ensure both that the medications prescribed are present, and that no other controlled substances are present. All prescriptions provided today were generated electronically. PLAN: 1. We discussed treatment options with the patient today, had become aware that she is to get her medications covered through her work comp company. According to our records, it appears that [employer] has been paying for her prescriptions. I encouraged her to talk to [facility] to make sure they do bill the correct company. We will be no longer be providing any prior authorizations for this medication. The patient was provided with this letter as well. 2. Dr. Jordan will continue her medications of oxymorphone ER 10 mg tablets #60. He will send this electronically to her pharmacy for refill today and again in 4 weeks as well as her OxyIR 10 mg #90 for her breakthrough pain medicine. 3. We have her continue her tizanidine, though no refills of this medication are needed today. 4 The patient states she has had both COVID vaccines and is thankful for that. Time spent with the patient in consultation, reviewing recent studies and clinical notes and physician reports, physical examination and correlation of findings and medical documentation to determine possible treatments 16 minutes. Time spent in preparation for appointment [place] [address] PAIN MANAGEMENT CONSULTATION Name: GERARD PARDO Room #: REG [facility] Joe#: [id number] Admission: 07/22/20 Attend Phys: Jennifer Lora Discharge: Date of : 50 Report #: [id number] reports, previous medical records, proposed treatment options, reviewing current medications 5 minutes. Time spent preparing and sending electronic prescriptions with collaborating physician and documentation of visit and plan of treatment 5-minutes. Total time spent 26 minutes. EFRA Adams/DU <ELECTRONICALLY SIGNED> By: Jennifer Lora 07/23/20 1522 [id number] Jennifer Lora /nt
== END ==
LOC: PAIN 09:08
PROVIDERS: ATTEND Clinical Nurse Specialist Adult Health
DX: M54.16 Radiculopathy, lumbar region (principal); F11.20 Opioid dependence, uncomplicated; M54.2 Cervicalgia; Z86.11 Personal history of tuberculosis; Z86.19 Personal history of other infectious and parasitic diseases; G89.29 Other chronic pain; Z88.8 Allergy status to other drugs, medicaments and biological substances; Z79.899 Other long term (current) drug therapy

== ENCOUNTER → 2020-09-23 | Outpatient (CLI) | payer OTHER ==
[~2020-09-23] VITALS: Ht 154.9 cm; Wt 89.9 kg
[2020-09-23 09:16] VITALS: BP 99/64
--- NOTE | 2020-09-23 09:44 | NUR ---
Pain Clinic Assessment: 1. History of Osteoarthritis: BACK History of Rheumatoid Arthritis: NONE 2. Height: 5 ft. 1 in. 154.9 cm. Weight: 198.2 lb. oz. 89.903 kg. Patient's BMI: 37.5 3. Vital Signs: BP: 99/64 Pulse: 65 Resp: 14 Temp: 02 Sat: 95 ECG Mon: 4. Pain Intensity: 3 5. Fall Risk: Dizziness: N Needs help standing or walking: N Fallen in the last 3 months: N Fall risk comments: 6. Patient on Blood Thinner: None 7. History of Hypertension: Y 8. Opioid Therapy greater than 6 weeks: Y Opiate Contract Signed: 04/14/17 9. Risk Assessment Tool Provided: 1-LOW 10. Functional Assessment Tool: 11. Recreational Drug Use: Never Drug Type: Tobacco Use: Never Smoker Tobacco Type: Amount or Packs/day: How Many Years: Alcohol Use: No Frequency: Quant:
--- NOTE | 2020-09-24 08:26 | HPC ---
[facility] [place] [address] PAIN MANAGEMENT CONSULTATION Name: GERARD PARDO Room #: REG [facility].#: [id number] Admission: 09/23/20 Attend Phys: Jennifer Lora Discharge: Date of : 50 Report #: [id number] THIS REPORT FOR: cc: Stephanie Min. Stephanie Jay. Jennifer Haas ~ cc: Shirlene Flynn MD DATE OF SERVICE: 09/23/2020 CHIEF COMPLAINT: Lumbar radiculopathy and low back pain. HISTORY OF PRESENT ILLNESS: This is a 69-year-old female who returns to the pain clinic today for treatment of her ongoing mid to low back pain. Today, she was reporting a pain score of 3/10, reporting a very good day. She states she has been feeling well lately and her pain has been very well controlled. Normally, her pain is in her mid to low back that is described as an aching, stabbing sensation. She states that usually walking, sitting and prolonged standing are problematic for her. Today, she has no complaints. She reports that the medication does not cause constipation or daytime somnolence. She recently had a colonoscopy where they discovered diverticulitis and polyps that were removed, but they were benign. Overall, she feels that the regimen she is on is very beneficial. ALLERGIES: VALIUM, PENICILLIN AND LATEX. CURRENT LIST OF MEDICATIONS: Oxymorphone 10 mg b.i.d., OxyIR 10 mg t.i.d. p.r.n., tizanidine, bupropion, albuterol, Singulair, Lunesta and gabapentin. PQRS: 1. She has osteoarthritic changes in her back. Denies any rheumatoid arthritis. Height is 5 feet 1 inch, weight is 198, BMI is 37. 2. Vital signs; blood pressure 99/64, pulse is 65, respirations 14, oxygen sat is 95%. 3. Pain score is 3/10. 4. Denies dizziness, does not need help walking or standing, has not fallen in the last 3 months. 5. The patient is not on any blood thinners, but does have a history of hypertension. 6. Opioid therapy is greater than 6 weeks; therefore, an opioid signed contract is on the chart. 7. Risk assessment is low. Functional assessment 60/70. 8. Recreational drug use, she denies. She is not a smoker, does not drink alcohol. According to the prescription monitoring system, the patient is due to fill her medications this week filling them in a timely fashion. Her morphine [address] [address] PAIN MANAGEMENT CONSULTATION Name: GERARD PARDO Room #: REG [facility] Joe#: [id number] Admission: 09/23/20 Attend Phys: Jennifer Lora Discharge: Date of : 50 Report #: [id number] milliequivalent according to the CDC guidelines is 105. Therefore, she is seen every 2 months in our clinic. She has a recent drug screen on the chart that is appropriate as well. We will repeat this at her next visit. PHYSICAL EXAMINATION: GENERAL: Alert and orientated, well-developed, slightly obese 69-year-old female who appears her stated age, rating her pain score today at 3/10. She is a good historian. HEENT: Normocephalic, atraumatic. Extraocular eye muscles are intact. Mucous membranes are moist. She is wearing a mask. MUSCULOSKELETAL: She is without significant scoliosis, kyphosis, or lordosis. Upper extremity strength is symmetrical at 5/5 as well as her lower extremity strength. She has discomfort in the thoracic region with slight radiation as well as in the lumbar spine with no radiation into her legs. She has well-healed approximate scar in her lumbar spine. IMPRESSION: 1. Lumbar radiculopathy with a history of Henley rods and fusion. 2. History of tuberculosis. 3. History of hepatitis. 4. Complex medical management utilizing scheduled opioid medications. 5. Chronic neck pain. We reviewed the fact that opiate medications are being used to provide analgesia adequate to support activities of daily living, not attempting to achieve a specific pain score on the 0-10 Visual Analog Scale. The current opiate medications are providing sufficient analgesia to allow the patient to participate in activities of daily living. The patient is not exhibiting any aberrant behavior suggestive of drug diversion. The patient is not having any adverse reactions to medications. The patient is not suffering from daytime somnolence or mental acuity changes. The patient is managing opiate-induced constipation with appropriate [id number] agents and dietary considerations. The patient was counseled on concern for caution with operating a motor vehicle while using opiate medications. PLAN: 1. We discussed treatment options with the patient today. The patient feels her current regimen of oxymorphone ER 10 mg tablets as well as OxyIR 10 mg up to 3 times a day has been beneficial. We will have Dr. Braxton Jordan continue these medications and send them electronically to her pharmacy for 2 months. 2. At her next visit, we will collect a random drug screen as it has been greater than 1 year at that time. Time spent with the patient in consultation, reviewing recent studies and clinical notes and physician reports, physical examination and correlation of [address] [address] PAIN MANAGEMENT CONSULTATION Name: CUTGERARD NAVARRETE Room #: [facility].#: [id number] Admission: 09/23/20 Attend Phys: Jennifer Lora Discharge: Date of : 50 Report #: [id number] findings and medical documentation to determine possible treatments, 12 minutes. Time spent in preparation for appointment, reviewing prescription monitoring system and reviewing current medications and previous records and proposed treatment options, 5 minutes. Time spent preparing and sending electronic prescriptions with collaborating physician, Dr. Jordan and documentation of visit and plan of treatment, 5 minutes. Total time spent 22 minutes. <ELECTRONICALLY SIGNED> By: Jennifer Lora 09/24/20 0826 [id number] 1942 Jennifer Lora /nt
== END ==
LOC: PAIN 09-22 11:01
PROVIDERS: ATTEND Clinical Nurse Specialist Adult Health
DX: M54.16 Radiculopathy, lumbar region (principal); G89.29 Other chronic pain; Z86.11 Personal history of tuberculosis; Z79.891 Long term (current) use of opiate analgesic; Z88.8 Allergy status to other drugs, medicaments and biological substances; Z88.0 Allergy status to penicillin; Z91.040 Latex allergy status

== ENCOUNTER → 2020-11-25 | Outpatient (CLI) | payer OTHER ==
[~2020-11-25] VITALS: Ht 154.9 cm; Wt 86.1 kg
[2020-11-25 11:31] VITALS: BP 116/73
--- NOTE | 2020-11-25 11:45 | NUR ---
Pain Clinic Assessment: 1. History of Osteoarthritis: BACK History of Rheumatoid Arthritis: NONE 2. Height: 5 ft. 1 in. 154.9 cm. Weight: 189.8 lb. oz. 86.093 kg. Patient's BMI: 35.9 3. Vital Signs: BP: 116/73 Pulse: 83 Resp: 16 Temp: 02 Sat: 100 ECG Mon: 4. Pain Intensity: 2 TO 3 5. Fall Risk: Dizziness: N Needs help standing or walking: N Fallen in the last 3 months: N Fall risk comments: 6. Patient on Blood Thinner: None 7. History of Hypertension: Y 8. Opioid Therapy greater than 6 weeks: Y Opiate Contract Signed: 04/14/17 9. Risk Assessment Tool Provided: 1-LOW 10. Functional Assessment Tool: 11. Recreational Drug Use: Never Drug Type: Tobacco Use: Never Smoker Tobacco Type: Amount or Packs/day: How Many Years: Alcohol Use: No Frequency: Quant:
== END ==
LOC: PAIN 07:07
PROVIDERS: ATTEND Anesthesiology Pain Medicine
DX: M54.16 Radiculopathy, lumbar region (principal); M54.5 Low back pain; M25.551 Pain in right hip; M25.552 Pain in left hip; D64.9 Anemia, unspecified; N20.0 Calculus of kidney; K75.9 Inflammatory liver disease, unspecified; Z22.7 Latent tuberculosis; Z90.710 Acquired absence of both cervix and uterus; Z88.0 Allergy status to penicillin; Z88.8 Allergy status to other drugs, medicaments and biological substances; Z79.899 Other long term (current) drug therapy

== ENCOUNTER → 2021-01-22 | Outpatient (CLI) | payer OTHER ==
[~2021-01-22] VITALS: Ht 154.9 cm; Wt 86.7 kg
[~2021-01-22] MED LIST changes: +IMIPRAMINE PAMO75 MG PO
[2021-01-22 10:25] VITALS: BP 128/67
--- NOTE | 2021-01-22 10:55 | NUR ---
Pain Clinic Assessment: 1. History of Osteoarthritis: BACK History of Rheumatoid Arthritis: NONE 2. Height: 5 ft. 1 in. 154.9 cm. Weight: 191.2 lb. oz. 86.728 kg. Patient's BMI: 36.1 3. Vital Signs: BP: 128/67 Pulse: 50 Resp: 16 Temp: 02 Sat: 97 ECG Mon: 4. Pain Intensity: 2 TO 3 5. Fall Risk: Dizziness: N Needs help standing or walking: N Fallen in the last 3 months: N Fall risk comments: 6. Patient on Blood Thinner: None 7. History of Hypertension: Y 8. Opioid Therapy greater than 6 weeks: Y Opiate Contract Signed: 04/14/17 9. Risk Assessment Tool Provided: 1-LOW 10. Functional Assessment Tool: 11. Recreational Drug Use: Never Drug Type: Tobacco Use: Never Smoker Tobacco Type: Amount or Packs/day: How Many Years: Alcohol Use: No Frequency: Quant:
== END ==
LOC: PAIN 09:43
PROVIDERS: ATTEND Anesthesiology Pain Medicine
DX: M54.6 Pain in thoracic spine (principal); M54.16 Radiculopathy, lumbar region; M43.26 Fusion of spine, lumbar region; D64.9 Anemia, unspecified; N20.0 Calculus of kidney; K75.9 Inflammatory liver disease, unspecified; Z90.710 Acquired absence of both cervix and uterus; Z88.0 Allergy status to penicillin; Z88.8 Allergy status to other drugs, medicaments and biological substances; Z79.899 Other long term (current) drug therapy

== ENCOUNTER → 2021-03-19 | Outpatient (CLI) | payer OTHER ==
[~2021-03-19] VITALS: Ht 152.4 cm; Wt 88.5 kg
[~2021-03-19] MED LIST changes: +IMIPRAMINE PAM100 MG PO
[2021-03-19 11:39] VITALS: BP 134/67
--- NOTE | 2021-03-19 11:45 | NUR ---
Pain Clinic Assessment: 1. History of Osteoarthritis: BACK History of Rheumatoid Arthritis: NONE 2. Height: 5 ft. 1 in. 152.4 cm. Weight: 195.2 lb. oz. 88.542 kg. Patient's BMI: 38.1 3. Vital Signs: BP: 134/67 Pulse: 94 Resp: 16 Temp: 02 Sat: 100 ECG Mon: 4. Pain Intensity: 2 TO 3 5. Fall Risk: Dizziness: N Needs help standing or walking: N Fallen in the last 3 months: N Fall risk comments: 6. Patient on Blood Thinner: None 7. History of Hypertension: N 8. Opioid Therapy greater than 6 weeks: Y Opiate Contract Signed: 04/14/17 9. Risk Assessment Tool Provided: 1-LOW 10. Functional Assessment Tool: 11. Recreational Drug Use: Never Drug Type: Tobacco Use: Never Smoker Tobacco Type: Amount or Packs/day: How Many Years: Alcohol Use: No Frequency: Quant:
== END ==
LOC: PAIN 08:18
PROVIDERS: ATTEND Anesthesiology Pain Medicine
DX: M54.16 Radiculopathy, lumbar region (principal); D64.9 Anemia, unspecified; N20.0 Calculus of kidney; K75.9 Inflammatory liver disease, unspecified; B90.9 Sequelae of respiratory and unspecified tuberculosis; Z88.0 Allergy status to penicillin; Z88.8 Allergy status to other drugs, medicaments and biological substances; Z90.710 Acquired absence of both cervix and uterus; Z79.899 Other long term (current) drug therapy